=== PATIENT | male | born 1935 | race Caucasian/White ===

== ENCOUNTER 2016-11-24 16:14 | Inpatient (IN) | payer MEDICARE ==
[~2016-11-24] VITALS: Ht 175.3 cm; Wt 79.5 kg
--- NOTE | 2016-11-24 16:30 | NUR ---
PATIENT TO ROOM 2103, ALERT AND ORIENTED. FAMILY IS AT BEDSIDE. DR MALDONADO NOTIFIED OF PATIENT ARRIVAL AND IS AT BEDSIDE. 22 G IV SITED TO PATIENT R FA, 1 ATTEMPT. RESERVING PATIENT L ARM FOR NEW FISTULA PLACEMENT. PATIENT DENIES ANY NEEDS OR COMPLAINTS AT THIS TIME. WILL CONT TO MONITOR PATIENT. CPOC
[2016-11-24 16:37] VITALS: BP 138/75
[2016-11-24 16:50] VITALS: BMI 15.9
[2016-11-24] MEDS ORDERED: FLOMAX0.4 MG PO (17:22)
[2016-11-24] MEDS ORDERED: TIROSINT13 MCG PO (17:22)
[2016-11-24] MEDS ORDERED: REQUIP1 MG PO (17:23)
--- NOTE | 2016-11-24 17:30 | NUR ---
CALLED PHARMACY FOR TB SKIN TEST, WAITING FOR THEM TO BRING UP. CPOC
--- NOTE | 2016-11-24 17:30 | NUR ---
PATIENT SITTING UP ON SIDE ON BED EATING DINNER. FAMILY AT BEDSIDE. PATIENT DENIES ANY NEEDS. CPOC
--- NOTE | 2016-11-24 17:30 | NUR ---
SPOKE WITH ESTHER THE PHARMACIST AT [facility] IN [facility]. RECONCILED HOME MED LIST WITH THEIR LIST OF MEDICATION FOR PATIENT. DUE TO PATIENT NOT KNOWING WHAT HE TAKES OR THE DOSE. CPOC
[2016-11-24] MEDS ORDERED: TRAZODONE HCL50 MG PO (17:33)
[2016-11-24] MEDS ORDERED: HYDROCODONE-APA1 TAB PO (17:34)
[2016-11-24] MEDS ORDERED: MEGACE40 MG PO (17:35)
[2016-11-24] MEDS ORDERED: MULTIPLE VITAMI1 TA1 PO (17:35)
[2016-11-24] MEDS ORDERED: TIROSINT75 MCG PO (17:36)
--- NOTE | 2016-11-24 19:43 | NUR ---
WAS INFORMED DURING REPORT THAT PT WAS TO BE HELD NPO PAST MIDNIGHT FOR HEMOSPLIT PLACEMENT 11/25. NO ORDERS TO OBTAIN CONSENT ON CHART
[2016-11-24 20:56] VITALS: BP 135/63
--- NOTE | 2016-11-24 21:28 | NUR ---
RESTING IN BED ALERT ORIENTED CONVERSANT. DENIES NEEDS. NO ACUTE DISTRESS NOTED
[2016-11-25 00:36] VITALS: BP 159/67
--- NOTE | 2016-11-25 04:01 | NUR ---
PIPE AND TANK FABRICATOR AT BEDSIDE TO OBTAIN VITALS, CALL LIGHT IN REACH. WILL CONTINUE TO MONITOR.
[2016-11-25 04:57] VITALS: BP 124/45
[2016-11-25 06:25] LABS: BASOPHILS 0.4 % (0.0-2.0); EOSINOPHILS 2.1 % (0-7); HEMATOCRIT 27.8 % (42.0-54.0); HEMOGLOBIN 8.6 g/dL (13.5-17.5); IMMATURE GRANULOCYTES 0.2 % (0-5); LYMPHOCYTES 18.5 % (15-50); MCHC 30.9 g/dL (31.0-37.0); MCV 93.6 fL (80.0-100.0); MEAN PLATELET VOLUME 9.6 fL (7.4-10.4); MONOCYTES 9.1 % (2-11); NEUTROPHILS 69.7 % (40-80); PLATELET COUNT 264 10x3/uL (130-400); RBC 2.97 10x6/uL (4.20-6.10); RDW 15.3 % (11.5-14.5)
[2016-11-25 06:33] LABS: INR 1.15 (0.85-1.17); PROTIME 14.6 SECONDS (11.6-15.0)
[2016-11-25 06:44] LABS: ANION GAP 20.4 mmol/L (8-16); CALCIUM 8.2 mg/dL (8.5-10.1); CARBON DIOXIDE 17.7 mmol/L (21.0-32.0); POTASSIUM - SERUM 4.1 mmol/L (3.5-5.1)
--- NOTE | 2016-11-25 07:15 | NUR ---
RECIEVED REPORT ON PATIENT, PATIENT IS ALERT AND ORIENTED AT THIS TIME. PATIENT HAS A R FA IV THAT IS SL AT THIS TIME. PATIENT IS NPO THIS AM FOR SURGERY TODAY. HE IS GOING FOR HEMOSPLIT PLACEMENT AND FISTULA CREATION. PATIENT DENIES ANY NEEDS OR COMPLAINTS AT THIS TIME. WILL CONT TO MONITOR PATIENT. BED LOW AND LOCKED. CALL LIGHT IN REACH. CPOC
[2016-11-25 08:00] VITALS: BP 157/61
--- NOTE | 2016-11-25 09:00 | NUR ---
MORNING PO MEDS HELD DUE TO PATIENT BEING NPO FOR SURGERY. ASSESSMENT DONE. PATIENT DENIES ANY NEEDS OR COMPLAINTS. CPOC
[2016-11-25 11:12] VITALS: Ht 175.3 cm; Wt 79.5 kg
--- NOTE | 2016-11-25 11:37 | NUR ---
SURGERY CALLED FOR ME TO PREOP PATIENT, WAITING ON PREOP ORDERS. CPOC
--- NOTE | 2016-11-25 11:45 | NUR ---
PATIENT PATHWAYS - Notified of patient new to dialysis. Access it to be placed and patient's HD initiated later today. Per SUNSHINE Szymanski, v/o from [facility] to place this patient. Will confirm clinic of choice with patient/family then forward the records to the patient's clinic of choice. ELIZABETH PRL
[2016-11-25 11:54] VITALS: BP 138/63
--- NOTE | 2016-11-25 12:23 | NUR ---
PATIENT PREOP AND GONE FOR SURGERY
[2016-11-25 14:16] LABS: ALBUMIN 2.3 g/dL (3.4-5.0); ANION GAP 22.5 mmol/L (8-16); BILIRUBIN - TOTAL 0.37 mg/dL (0.2-1.3); CALCIUM 8.1 mg/dL (8.5-10.1); CARBON DIOXIDE 16.6 mmol/L (21.0-32.0); CREATININE - SERUM 8.1 mg/dL (0.6-1.3); POTASSIUM - SERUM 4.1 mmol/L (3.5-5.1); PROTEIN - SERUM 6.6 g/dL (6.4-8.2)
--- NOTE | 2016-11-25 14:20 | NUR ---
PATIENT IS BACK FROM SURGERY, PATIENT GOT A HEMOSPLIT TO R CHEST. PATIENT IS ALERT AND ORIENTED AT THIS TIME. PATIENT RR IS 24, O2 SAT IS 80%, BP 97/48 HR 101. NOTIFIED RESPIRATORY AND PUT PATIENT ON 2L/MIN VIA NC, O2 SAT IS NOW 96%. WILL CONT TO MONITOR PATIENT CLOSELY. CPOC
--- NOTE | 2016-11-25 14:45 | NUR ---
TB SKIN TEST DONE, INSERTED 0.1ML OF APLISOL IN THE R FA. LOT NUMBER [id number] EXP DATE 12/24. WILL NEED TO CHECK FOR RESULT ON 11/27/16 AT 1445. WILL PASS ON IN REPORT. CPOC
--- NOTE | 2016-11-25 14:54 | NUR ---
patient refuses to wear scds, explained and educated. still refuses
[2016-11-25 15:49] VITALS: BP 126/66
--- NOTE | 2016-11-25 15:57 | NUR ---
CM WAS NOTIFIED BY DR MALDONADO THAT PT WILL NEED OPHD ARRANGED. CM PLACED CALL TO CHARLA WOODARD WITH PATIENT PATHWAYS TO INFORM OF NEW OPHD ORDER. CHARLA WILL ARRANGE AND NOTIFY CM WHEN FINAL CHIAR TIME/CLINIC IS KNOWN.
--- NOTE | 2016-11-25 17:00 | NUR ---
PATIENT SITTING UP EATING DINNER. DENIES ANY NEEDS AT THIS TIME. WILL CONT TO MONITOR. CPOC
--- NOTE | 2016-11-25 18:10 | NUR ---
DIAYLSIS NURSE AT BEDSIDE TO START DIAYLSIS. CPOC
--- NOTE | 2016-11-25 21:02 | NUR ---
Mr. Roy had bedside hemodialysis today via his right chest hemosplit from 184 until 2046. Average blood flow was 250 mls/minute due to elevated BUN and this being his first treatment. Zero fluid removed per orders. Post vital signs were: B/P: 113/58, HR: 00, Temp: 97.8, Resps: 22.
[2016-11-25 22:37] VITALS: BP 114/58
[2016-11-26 01:38] VITALS: BP 132/69
--- NOTE | 2016-11-26 01:53 | NUR ---
PT RESTING SOUNDLY WITHOUT C/O OR DISTRESS NOTED. CALL LIGHT WITHIN REACH. WILL CONT TO MONITOR.
[2016-11-26 05:55] VITALS: BP 115/58
[2016-11-26 06:32] LABS: BASOPHILS 0.3 % (0.0-2.0); HEMATOCRIT 27.9 % (42.0-54.0); HEMOGLOBIN 8.8 g/dL (13.5-17.5); IMMATURE GRANULOCYTES 0.2 % (0-5); LYMPHOCYTES 11.5 % (15-50); MCH 29.2 pg (26.0-34.0); MCHC 31.5 g/dL (31.0-37.0); MCV 92.7 fL (80.0-100.0); MEAN PLATELET VOLUME 9.6 fL (7.4-10.4); MONOCYTES 8.3 % (2-11); NEUTROPHILS 78.7 % (40-80); PLATELET COUNT 230 10x3/uL (130-400); RBC 3.01 10x6/uL (4.20-6.10); RDW 15.1 % (11.5-14.5)
[2016-11-26 06:37] LABS: WBC 10.8 10x3/uL (4.8-10.8)
[2016-11-26 06:44] LABS: % SATURATION 16 % (15-55); IRON 17 ug/dl (35-150); TOTAL IRON BIND CAPACITY 101 ug/dl (260-445); UNSAT IRON BIND CAPACITY 84 ug/dl (150-375)
[2016-11-26 07:04] LABS: ALBUMIN 2.2 g/dL (3.4-5.0); BILIRUBIN - TOTAL 0.39 mg/dL (0.2-1.3); CALCIUM 8.1 mg/dL (8.5-10.1); MAGNESIUM - SERUM 1.7 mg/dL (1.8-2.4); PHOSPHOROUS 5.3 mg/dL (2.5-4.9); POTASSIUM - SERUM 3.6 mmol/L (3.5-5.1); PROTEIN - SERUM 6.4 g/dL (6.4-8.2); T4 THYROXIN - FREE 1.3 ng/dL (0.76-1.46); THYROID STIMULATING HORMONE 7.96 uIU/mL (0.36-3.74)
[2016-11-26 07:06] LABS: ANION GAP 18.1 mmol/L (8-16); CARBON DIOXIDE 22.5 mmol/L (21.0-32.0)
[2016-11-26 07:22] LABS: HEPATITIS C ANTIBODY <0.1 (0.0-0.9)
[2016-11-26 07:49] VITALS: BP 138/63
--- NOTE | 2016-11-26 08:01 | NUR ---
PT RESTING IN BED WITH EYES OPEN CALL LIGHT IN REACH NO PROBLEMS WILL MONITER
--- NOTE | 2016-11-26 09:13 | NUR ---
RESP UL ON 02 3L NC. CALL LIGHT IN REACH. WILL MONITOR NEEDS.
[2016-11-26 11:47] VITALS: BP 125/69
--- NOTE | 2016-11-26 12:00 | NUR ---
PT RESTING IN BED WITH EYES OPEN CALL LIGHT IN REACH NO PROBLEMS WILL MONITER
--- NOTE | 2016-11-26 14:45 | NUR ---
DIALYSIS IN ROOM TO DO DIALYSIS PT RESTING WITH CALL LIGHT IN REACH WILL MONITER
[2016-11-26 15:54] VITALS: BP 117/56
--- NOTE | 2016-11-26 20:09 | NUR ---
RESTING IN BED. DIFFICULTY SWALLOWING NOTED THAT WAS NOT PREVIOUSLY EVIDENT FROM PRIOR MEDICATION ADMINISTRATIONS. NO S/S ASPIRATION NOTED. ALERT ORIENTED CONVERSANT. DENIES NEEDS
[2016-11-26 20:37] VITALS: BP 138/74
--- NOTE | 2016-11-26 20:40 | NUR ---
PT REQUESTING UPDRAFT. RESPIRATORY NOTIFIED.
--- NOTE | 2016-11-26 23:11 | NUR ---
PT LAYING IN BED NO DISTRESS OBSERVED CALL LIGHT IN [facility] SRX2 BED LOW AND LOCKED WILL MONITOR
[2016-11-27 00:17] VITALS: BP 156/68
[2016-11-27 04:29] VITALS: BP 158/68
[2016-11-27 06:02] LABS: BASOPHILS 0.1 % (0.0-2.0); EOSINOPHILS 0.7 % (0-7); IMMATURE GRANULOCYTES 0.3 % (0-5); LYMPHOCYTES 5.5 % (15-50); MCV 93.5 fL (80.0-100.0); MEAN PLATELET VOLUME 9.5 fL (7.4-10.4); MONOCYTES 7.3 % (2-11); NEUTROPHILS 86.1 % (40-80); PLATELET COUNT 188 10x3/uL (130-400); RDW 15.3 % (11.5-14.5)
[2016-11-27 06:08] LABS: WBC 15.2 10x3/uL (4.8-10.8)
[2016-11-27 06:43] LABS: ANION GAP 18.7 mmol/L (8-16); CALCIUM 7.8 mg/dL (8.5-10.1); CARBON DIOXIDE 24.9 mmol/L (21.0-32.0); MAGNESIUM - SERUM 1.8 mg/dL (1.8-2.4); PHOSPHOROUS 5.4 mg/dL (2.5-4.9); POTASSIUM - SERUM 3.6 mmol/L (3.5-5.1)
--- NOTE | 2016-11-27 07:24 | NUR ---
RECIEVED REPORT ON PATIENT, PATIENT IS ALERT AND ORIENTED AT THIS TIME. IS AT BEDSIDE. PATIENT HAS A R CHEST HEMOSPLIT USED FOR DIAYLSIS. PATIENT ALSO HAS A R FA IV THAT IS SL AT THIS TIME. SHAREPOINT CONSULTANT AT BEDSIDE DOING VS PATIENT O2 SAT IS 83% ON 2L/MIN VIA NC, ENCOURGED PATIENT TO SIT UP IN BED AND COUGH, O2 SAT NOW 87%,REPIRATORY AT BEDSIDE FOR BREATHING TREATMENT. WILL CONT TO MONITOR PATIENT. CPOC.
[2016-11-27 07:45] VITALS: BP 159/78
--- NOTE | 2016-11-27 09:15 | NUR ---
MORNING MEDICATION CRUSHED AND GIVEN IN APPLESAUCE. PATIENT TOLERATED WELL. ASSESSMENT DONE. APTIENT DENIES ANY NEEDS. CPOC
--- NOTE | 2016-11-27 11:00 | NUR ---
PATIENT HAS A DRY, NON PRODUCTIVE FREQUENT COUGH. AND PATIENT HAS SHALLOW BREATHING, NOTIFIED WENDY HADLEY AND SHE IS CONSULTING DR ALLYSSA DIAMOND PATIENT. PATIENT O2SAT 95%. WILL CONT TO MONITOR PATIENT. CPOC
[2016-11-27 11:57] VITALS: BP 113/46
--- NOTE | 2016-11-27 12:00 | NUR ---
PATIENT IV LEAKING, IV DC WITH CATH TIP INTACT. WILL RESITE. CPOC
--- NOTE | 2016-11-27 12:30 | NUR ---
PATIENT IV RESITED TO R FA, 22G. CPOC
--- NOTE | 2016-11-27 13:54 | NUR ---
PATIENT PUT BACK TO BED, PATIENT SIT IN CHAIR FOR 30 MINS, THEN WANTED BACK IN BED. CPOC
--- NOTE | 2016-11-27 14:45 | NUR ---
PATIENT TB SKIN TEST WNL, NO INDURATION OR REDNESS NOTED. CPOC
[2016-11-27 15:03] VITALS: BP 138/62
--- NOTE | 2016-11-27 15:16 | NUR ---
REHAB PRESCREENING Rehab referral received and chart reviewed. Mr. Roy does have a rehab diagnosis. He sat at bedside with PT this morning and did walk 4 feet in the afternoon to chair. Rehab will follow this patient for improved mobility to ensure he can tolerate 3 hours of therapy. Thank you for this referral! Nessa Denny, HEARING AID CONSULTANT/[facility]
--- NOTE | 2016-11-27 16:00 | NUR ---
PATIENT USING INCENTIVE SPIROMETER. CPOC
[2016-11-27 17:06] LABS: APPEARANCE TURBID (CLEAR); BACTERIA MODERATE /hpf (NONE SEEN); BILIRUBIN NEGATIVE (NEGATIVE); COLOR YELLOW (YELLOW); EPITHELIAL CELLS 0-5 /hpf (0-5); GLUCOSE NEGATIVE (NEGATIVE); KETONE NEGATIVE (NEGATIVE); LEUKOCYTE ESTERASE 2+ (NEGATIVE); NITRITE NEGATIVE (NEGATIVE); PROTEIN 2+ mg/dL (NEGATIVE); SPECIFIC GRAVITY 1.015 (1.005-1.020); UROBILINOGEN NORMAL (NORMAL); WHITE CELLS - URINE >50 /hpf (0-5)
--- NOTE | 2016-11-27 18:15 | NUR ---
PATIENT SITTING UP IN BED, DENIES ANY NEEDS. USING INCENTIVE SPIROMETER. MEETING 750 GOAL. WILL MONITOR. CPOC
--- NOTE | 2016-11-27 19:30 | NUR ---
ASSESSMENT COMPLETE, DENIES NEEDS AT THIS TIME.RESP EVEN AND UNLAB WITH NO S/S OF ACUTE DISTRESS NOTED. RT CHEST HEMESPLIT INTACT LOCKED. RT FA SL INTACT WITH NO R/S NOTED AT THIS TIME. HOB UP SR UP X2, C/L IN REACH CONTINUE TO MONITOR.
[2016-11-27 20:00] VITALS: BP 125/52
[2016-11-28] VITALS: BP 107/69
--- NOTE | 2016-11-28 01:47 | NUR ---
EYES CLOSED, RESP UNLAB WITH NO S/S OF ACUTE DISTRESS NOTED. C/L IN REACH.
[2016-11-28 04:00] VITALS: BP 117/58
[2016-11-28 05:41] LABS: BASOPHILS 0.1 % (0.0-2.0); EOSINOPHILS 0.8 % (0-7); HEMATOCRIT 28.6 % (42.0-54.0); HEMOGLOBIN 8.9 g/dL (13.5-17.5); IMMATURE GRANULOCYTES 0.3 % (0-5); LYMPHOCYTES 7.1 % (15-50); MCHC 31.1 g/dL (31.0-37.0); MCV 93.2 fL (80.0-100.0); MEAN PLATELET VOLUME 9.7 fL (7.4-10.4); MONOCYTES 8.6 % (2-11); NEUTROPHILS 83.1 % (40-80); RBC 3.07 10x6/uL (4.20-6.10); RDW 15.3 % (11.5-14.5)
[2016-11-28 06:10] LABS: PLATELET COUNT 242 10x3/uL (130-400)
[2016-11-28 06:26] LABS: ANION GAP 15.3 mmol/L (8-16); CALCIUM 7.4 mg/dL (8.5-10.1); CARBON DIOXIDE 25.9 mmol/L (21.0-32.0); CREATININE - SERUM 5.8 mg/dL (0.6-1.3); MAGNESIUM - SERUM 1.6 mg/dL (1.8-2.4); PHOSPHOROUS 5.3 mg/dL (2.5-4.9); POTASSIUM - SERUM 3.2 mmol/L (3.5-5.1); PRE-ALBUMIN 11.8 mg/dL (18.0-35.7)
--- NOTE | 2016-11-28 07:22 | NUR ---
AM ROUNDING- PT LAYING IN BED ON BACK WITH EYES CLOSED RESTING. ON 02 AT 2L VIA NC. IV SEEN TO RIGHT FOREARM THAT CURRENTLY HAS ANTIBIOTICS GOING. RIGHT CHEST HEMOSPLIT SEEN FOR DIALYSIS ACCESS. PT IS SUPPOSE TO DIALYZE TODAY PER REPORT FROM GRADES 7 AND 8 TEACHER NURSE, JUVENCIO. PT IS ON LOVENOX INJECTION FOR DVT PREVENTION. UP WITH ASSIST PER REPORT. NO NEED AT CURRENT TIME. WILL CONTINUE TO MONITOR.
--- NOTE | 2016-11-28 07:33 | NUR ---
PAGEErin WOODRUFF APN TO INFORM HER THAT PTS POTASSIUM IS 3.2. AWAITING CALLBACK.
--- NOTE | 2016-11-28 07:38 | NUR ---
RECEIVED CALLBACK FROM TORRIE WOODRUFF. RECEIVED NEW ORDERS. WILL CONTINUE TO MONITOR.
[2016-11-28 08:00] VITALS: BP 91/53
--- NOTE | 2016-11-28 09:23 | NUR ---
0900- PT TO CT VIA BED.
--- NOTE | 2016-11-28 09:23 | NUR ---
0915- PT BACK FROM CT VIA BED.
--- NOTE | 2016-11-28 11:03 | NUR ---
Nutrition follow-up: Diet: Regular low PO4 Pt also receiving Nepro with meals PO intake 25-50% of meals Labs reviewed +BM Wt: 108# Labs reviewed PO intake remains poor at this time Receiving a regular low PO4 diet; Nepro with meals. Will offer Butter Pecan Nepro along with Vanilla Nepro. RDN will continue to encourage increased po intake. Swallow eval has been ordered per Renal physician. RDN following.
--- NOTE | 2016-11-28 11:29 | NUR ---
Rehab Note- Patient continues with test during acute hospital stay- CT of chest & also doppler studies. Will continue to follow the patient at this time. Thank you for this referral! Salud Barba RN Clinical Liaison, Rehab Care/[place]
--- NOTE | 2016-11-28 11:47 | NUR ---
Patient Name: LUL YOON Admission Status: Urgent Accout number: [id number] Admission Date: 11-24-2016 : 1935 Admission Diagnosis:ADULT FAILURE TO THRIVE Attending: ZARINA Current LOS: 4 Anticipated DC Date: Planned Disposition: Inpatient Rehab Primary Insurance: MEDICARE A & B PLANNED EXTERNAL PROVIDER: [facility] IN[facility]IENT RE[facility] Discharge Planning Comments: * Is the patient Alert and Oriented? Yes 0 * How many steps to enter\exit or inside your home? 3 0 * PCP DR. ELLA COOPER 0 * Pharmacy [facility] 0 * Preadmission Environment Home with Family 0 * ADLs Independent 0 * Equipment Nebulizer Walker 0 * Other Equipment [facility] - MEDICAL EQUIPMENT PROVIDER 0 * List name and contact numbers for known caregivers / representatives who currently or will assist patient after discharge: KELLI YOON, SPOUSE, RIVERA CHANTELLE, DTR, 0 * Community resources currently utilized Other 0 * Please name any agencies selected above. OUTPATIENT HEMODIALYSIS UNIT BEING ARRANGED * Additional services required to return to the preadmission environment? Yes * Can the patient safely return to the preadmission environment? Yes 0 * Has this patient been hospitalized within the prior 30 days at any hospital? No 0 CM RECEIVED ORDER FOR INPATIENT REHAB. CM MET WITH PT AND GRANDDAUGHTER IN ROOM TO DISCUSS DISCHARGE PLANNING AND NEEDS. PT REPORTS LIVING AT HOME INDEPENDENTLY WITH SPOUSE AND ADULT DAUGHTER. PT HAS NEBULIZER AND WALKER FROM [facility]. PT HAS NO OUTSIDE SERVICES ASSISTING IN THE HOME. CM DISCUSSED AVAILABILITY OF HOME HEALTH, REHAB SERVICES AND MEDICAL EQUIPMENT. PT WOULD PREFER TO GO HOME IF HE IS ABLE; PT IS UNSURE AND HAS NOT BEEN OUT OF BED SINCE ADMISSION. PT WILL CONSIDER INPATIENT REHAB, DETENTION OR HOME HEALTH, DEPENDING UPON WHAT HE IS ABLE TO DO WITH THERAPY THIS AFTERNOON. PT REPORTS FAMILY WILL PICK HIM UP FOR DISCHARGE HOME. IMPORTANT MESSAGE FROM MEDICARE PROVIDED AND EXPLAINED. CM WAITING ON PHYSICAL THERAPY EVALUATION AND WILL SPEAK TO PT AGAIN REGARDING REHAB / HOME NEEDS. Hand Developer: Wilmer Flores
[2016-11-28 12:00] VITALS: BP 109/56
--- NOTE | 2016-11-28 12:32 | NUR ---
DIALYSIS IS IN ROOM WITH PT. NO NEED AT CURRENT TIME. WILL CONTINUE TO MONITOR.
--- NOTE | 2016-11-28 15:01 | NUR ---
FLOOR WAS INFORMED AT [facility] WILL BE RESCHEDULED FOR 11/29/16 DUE TO THE FACT PT IS GETTING DIALYSIS AND SPEECH PATHOLOGIST WILL BE HERE T[place]MOR[place]ATIANA [place]
--- NOTE | 2016-11-28 15:34 | NUR ---
JOSSY FROM RADIOLOGY CALLED AND STATED THAT PTS SWALLOW STUDY WOULD HAVE TO BE DONE IN THE MORNING BECAUSE THE SPEECH PATHOLOGIST WAS NOT IN TODAY.
[2016-11-28 16:00] VITALS: BP 102/50
--- NOTE | 2016-11-28 18:19 | NUR ---
PT SITTING UP IN BED. AT BEDSIDE. NO NEED AT CURRENT TIME. WILL CONTINUE TO MONITOR.
--- NOTE | 2016-11-28 19:30 | NUR ---
ASSESSMENT COMPLETE, DENIES NEEDS AT THIS TIME. HOB UP SR UP X2, C/L IN REACH. O2 @ 2; NC IN PLACE. ENCOURAGED TO COUGH AND DEEP BREATHE. COUGHS SHALLOW ONLY. RT CHEST HEMESPLIT INTACT AND LOCKED. RT FA SL INTACT WITH NO R/S NOTEDS AT SITE. AT BEDSIDE FOR NIGHT. CONTINUE TO MONITOR.
[2016-11-28 20:00] VITALS: BP 122/58
[2016-11-29] VITALS: BP 126/58
[2016-11-29 04:00] VITALS: BP 113/59
[2016-11-29 05:11] LABS: BASOPHILS 0.1 % (0.0-2.0); EOSINOPHILS 0 % (0-7); HEMATOCRIT 25.6 % (42.0-54.0); IMMATURE GRANULOCYTES 0.3 % (0-5); LYMPHOCYTES 2.3 % (15-50); MCH 29.3 pg (26.0-34.0); MCHC 31.3 g/dL (31.0-37.0); MCV 93.8 fL (80.0-100.0); NEUTROPHILS 95.3 % (40-80); PLATELET COUNT 175 10x3/uL (130-400); RBC 2.73 10x6/uL (4.20-6.10); RDW 15.2 % (11.5-14.5); WBC 13.3 10x3/uL (4.8-10.8)
[2016-11-29 05:25] LABS: ANION GAP 10.9 mmol/L (8-16); CALCIUM 8.1 mg/dL (8.5-10.1); CARBON DIOXIDE 31.2 mmol/L (21.0-32.0)
[2016-11-29 05:26] LABS: CREATININE - SERUM 3.6 mg/dL (0.6-1.3); POTASSIUM - SERUM 4.1 mmol/L (3.5-5.1)
--- NOTE | 2016-11-29 07:33 | NUR ---
AM ROUNDING- PT LAYING ON RIGHT SIDE RESTING WITH EYES OPEN. IS AT BEDSIDE. PT IS SUPPOSE TO HAVE A SWALLOW STUDY TODAY DONE. IV SEEN TO RIGHT FOREARM THAT IS SALINE LOCKED AND PATENT. ON O2 AT 2L VIA NC. URINAL AT BEDSIDE. NO MONITOR. RESERVE LEFT ARM FOR NEW AVF THAT IS NOT ACCESSABLE YET PER REPORT FROM GROUNDSKEEPER PORTER NURSE. RIGHT CHEST HEMOSPLIT SEEN FOR DIALYSIS ACCESS. PT HAD DIALYSIS YESTERDAY. ON LOVENOX FOR DVT PREVENTION. NO NEED AT CURRENT TIME. WILL CONTINUE TO MONITOR.
[2016-11-29 08:22] LABS: VITAMIN D 25 HYDROXY 23.5 ng/mL (30.0-100.0)
[2016-11-29 08:52] VITALS: BP 116/63
[2016-11-29 12:13] VITALS: BP 101/52
--- NOTE | 2016-11-29 12:51 | NUR ---
Patient Name: LUL YOON Encounter No: [id number] : 1935 Primary Insurance: MEDICARE A & B Anticipated DC Date: 11-30-2016 Planned Disposition: [facility] Facility External Planned Provider: [facility], MEDICARE REHAB BED DCP follow-up note: CM SPOKE TO PT AND SPOUSE IN ROOM REGARDING DISCHARGE PLANNING AND NEEDS. PT AND SPOUSE HAVE DISCUSSED INPATIENT REHAB AND HAVE DECIDED TO GO TO [facility] [place] THAT WILL BE MUCH CLOSER TO HOME FOR BOTH OF THEM. CHOICE SIGNED. CM NOTIFIED RANJAN OF [facility] THAT PT WAS NOT INTERESTED IN INPATIENT REHAB AT [facility]. CM SPOKE TO RN SUNSHINE SAWYER WHO ADVISED PT'S OUTPATIENT DIALYSIS CLINIC SCHEDULE IS: [facility] IN [place], //, 3:15PM; FIRST HD APPT TO ARRIVE AT 2:30PM. CM CALLED [facility], , LEFT MESSAGE FROM LANDON AND FAXED REFERRAL TO [facility] AT [phone]. CM WAITING ADMISSION DETERMINATION FROM [facility]. Wilmer Flores, CASE MANAGEMENT
--- NOTE | 2016-11-29 14:16 | NUR ---
PTS IV CATHETER TO RIGHT FOREARM KEPT LEAKING WHEN GIVING IV MEDICAITON. DONTAE BROWN, VASCULAR ACCESS NURSE RESITED PT TO RIGHT HAND X 1 STICK WITH 22G IV CATHETER. TOLERATED WELL. WILL CONTINUE TO SY.
--- NOTE | 2016-11-29 14:20 | NUR ---
OLD IV TO RIGHT FOREARM REMOVED WITH CATH TIP INTACT. SECURED SITE WITH 4X4 GAUZE AND TAPE. TOLERATED WELL.
[2016-11-29 16:08] VITALS: BP 142/63
--- NOTE | 2016-11-29 16:59 | NUR ---
PATIENT PATHWAYS - Patient was approved for placement at [facility] on a Monday/Monday/Monday @ 3:15pm. Patient will need to arrive at 2:30 for first treatment. Welcome Letter forwarded to CM to give to patient. Awaiting further orders. ELIZABETH PRL
--- NOTE | 2016-11-29 18:33 | NUR ---
PT LAYING IN BED ON BACK RESTING. AT BEDSIDE. PT IS NPO PER ORDER. WILL CONTINUE TO MONITOR.
--- NOTE | 2016-11-29 19:30 | NUR ---
EYES CLOSED, RESP UNLAB WITH O2 @ 2L NC IN USE, WITH SHALLOW BREATHING NOTED. LYING ON LEFT SIDE, EASILY AROUSED, VOICES NO C/O PAIN OR DISCOMFORT. C/L IN REACH.
[2016-11-29 21:18] VITALS: BP 95/51
[2016-11-30 01:12] VITALS: BP 106/57
--- NOTE | 2016-11-30 03:10 | NUR ---
AWAKE, ALERT, VOICES NO C/O PAIN OR DISCOMFORT AT THIS TIME. HOB UP SR UP X2, C/L IN REACH. AT BEDSIDE FOR NIGHT. CONTINUE TO MONITOR,
[2016-11-30 04:55] LABS: BASOPHILS 0 % (0.0-2.0); EOSINOPHILS 0 % (0-7); HEMATOCRIT 24.7 % (42.0-54.0); HEMOGLOBIN 7.6 g/dL (13.5-17.5); IMMATURE GRANULOCYTES 0.3 % (0-5); LYMPHOCYTES 3.4 % (15-50); MCH 29.2 pg (26.0-34.0); MCHC 30.8 g/dL (31.0-37.0); MEAN PLATELET VOLUME 9.7 fL (7.4-10.4); MONOCYTES 3.9 % (2-11); NEUTROPHILS 92.4 % (40-80); PLATELET COUNT 199 10x3/uL (130-400); RDW 15.7 % (11.5-14.5); WBC 12.3 10x3/uL (4.8-10.8)
[2016-11-30 05:14] LABS: ANION GAP 12.6 mmol/L (8-16); CALCIUM 8.7 mg/dL (8.5-10.1); CARBON DIOXIDE 29.3 mmol/L (21.0-32.0); POTASSIUM - SERUM 3.9 mmol/L (3.5-5.1)
[2016-11-30 05:21] VITALS: BP 122/58
--- NOTE | 2016-11-30 08:01 | NUR ---
ASSESSMENT DONE. PT A/O, WATCHING TV. SPOUSE IN ROOM. PT NPO. DENIES NEEDS. NO DISTRESS NOTED. CALL LIGHT WITH IN REACH. WILL CONT. TO MONITOR.
[2016-11-30 08:22] LABS: IMMUNOGLOBULIN A 161 mg/dL (61-437); IMMUNOGLOBULIN G 1371 mg/dL (700-1600); IMMUNOGLOBULIN M 62 mg/dL (15-143)
--- NOTE | 2016-11-30 08:37 | NUR ---
Patient Name: LUL YOON Encounter No: [id number] : 1935 Primary Insurance: MEDICARE A & B Anticipated DC Date: 11-30-2016 Planned Disposition: Intermediate Facility External Planned Provider: [facility], MEDICARE REHAB BED DCP follow-up note: CM FAXED REFERRAL UPDATE TO [facility] AT [phone]. CM WAITING ADMISSION DETERMINATION FROM [facility]. Wilmer Flores, CASE MANAGEMENT
[2016-11-30 08:50] VITALS: BP 118/74
--- NOTE | 2016-11-30 09:31 | NUR ---
RESP UL ON . AT BS. CALL LIGHT IN REACH. WILL CONT. PLAN OF CARE.
--- NOTE | 2016-11-30 09:44 | NUR ---
PT TO DIALYSIS VIA BED. SPOUSE IN ROOM
--- NOTE | 2016-11-30 13:40 | NUR ---
PT BACK FROM DIALYSIS
--- NOTE | 2016-11-30 14:16 | EC ---
PATIENT:LUL YOON DATE OF SERVICE: 11/24/16 SEX: M MEDICAL RECORD: [id number] DATE OF : [birth year] LOCATION:D.M2 D.210 AGE OF PATIENT: 81 ADMISSION DATE: 11/24/16 REFERRING PHYSICIAN: INTERPRETING PHYSICIAN: GEOVANI FERRER MD ECHOCARDIOGRAM REPORT ECHO CHARGES 4 ECHO COMPLETE CLINICAL DIAGNOSIS: ASSESS LV FUN/SOB ECHOCARDIOGRAPHIC MEASUREMENTS (adult normal given) AC root (d.<3.7cm) 3.8 LV Septum d (<1.2 cm> 2.0 Valve Excursion 2.1 LV Septum (systole) 2.1 Left Atria (s.<4.0cm> 3.8 LVPW d(<1.2cm) 1.5 RV (d.<2.3cm) 3.8 LVPW (sytole) 1.9 LV diastole(<5.6CM) 3.9 MV E-F(>70mm/sec) LV systole 2.2 LVOT Diameter 2.1 MV exc.(>10mm) 2.0 Est.ejection fraction (50-75%) Pericardial Effusion N DOPPLER: LVIT A 118 E 78.0 LA RVSP 51 LVOT 117 AOP1/2T Asc. Ao 121 RVOT 128 RA PA 152 AV Gradient Peak 5.90 AV Mean 3.12 AV Area 3.0 MV Gradient Peak 4.74 MV Mean 1.92 MV Area COMMENTS: Prosthetics Technician: Roxana CORNELIUS Process Equipment Operator:1 Dr. Archer TAPE# PACS DATE OF SERVICE: 11/25/2016 Adequate 2D echo, color flow and spectral Doppler, and M-mode. LVH is present. LV internal dimensions are normal. Wall motion is normal. EF is greater than or equal to 55%. Aortic valve is tricuspid. No evidence of stenosis by Doppler interrogation. The left atrium is normal at 3.8 cm. Mitral valve shows mild mitral annular calcification only and mild MR. Right-sided chambers appear grossly normal. There is moderate TR. PA systolic pressure is estimated greater than or equal to 51 mmHg via the continuity equation. ECHOCARDIOGRAM REPORT [id number] LUL YOON TRANSINT:[id number] Voice Confirmation ID: [id number] DOCUMENT ID: [id number] 11/30/2016 Edited to correct date of service, dmm. GEOVANI FERRER MD at 1416 CC: [id number] DICTATION DATE: 11/27/16 1056 WEB PRODUCTION MANAGER: 11/27/162021 ADM IN [place] [id number] [place] [address]
[2016-11-30 14:52] VITALS: BP 116/54
--- NOTE | 2016-11-30 16:48 | NUR ---
PT IS WANTING TO EAT APPLESAUCE. STATES HE IS "STARVING." THIS NURSE ADVISED PT AND SPOUSE AGAINST EATTING OR DRINKING ANYTHING AT THIS TIME. EDUCATED PT AND SPOUSE ON RISKS THAT MOST LIKLY WILL ARISE IF PT WERE TO EAT. PT STATES HE UNDERSTAND THE RISKS BUT HE IS HUNGERY AND WANTS JUST A SMALL CONTAINER OF APPLESAUCE. NURSE SPOKE TO DR. TEJEDA ABOUT THIS. DR. TEJEDA STATES TO TELL THE PT NO, AND TO START D5 1/2 NS, BUT TO NOTIFY RENAL BEFORE STARTING TO LET THEM KNOW. PAGED TIMOTHY OIL FIELD PUMPER WITH RENAL. WAITING TO HEAR BACK FROM RENAL NOW.
--- NOTE | 2016-11-30 17:52 | NUR ---
DR. ANDREWS HERE AND DISCUSSED PEG PLACEMENT WITH PT AND FAMILY. TPN ORDERED. PT TEARFUL, BUT IS HOPEFUL THAT PROCEDURE WILL HELP HIM TO FEEL BETTER. DENIES NEEDS AT THIS TIME. PT COUGH IS WEAK HE IS UNABLE TO COUGH ANYTHING UP.
[2016-11-30 18:42] LABS: ALBUMIN 2.3 g/dL (3.4-5.0); ANION GAP 14.4 mmol/L (8-16); CALCIUM 8.4 mg/dL (8.5-10.1); CARBON DIOXIDE 28.3 mmol/L (21.0-32.0); MAGNESIUM - SERUM 1.8 mg/dL (1.8-2.4); POTASSIUM - SERUM 3.7 mmol/L (3.5-5.1)
[2016-11-30 18:44] LABS: CREATININE - SERUM 2.3 mg/dL (0.6-1.3); PRE-ALBUMIN 14.8 mg/dL (18.0-35.7)
[2016-11-30 20:00] VITALS: BP 127/60
--- NOTE | 2016-11-30 23:13 | NUR ---
Recieved report, patient alert and oriented , family at bedside, call light , within reach, patient is NPO, IV sites right wrist and right hemisplit, O2 at 2 L via NC, left arm reserve, assessment done, will continue to monitor.
[2016-12-01] VITALS: BP 135/66
--- NOTE | 2016-12-01 01:10 | NUR ---
Patient resting quietly in bed eyes closed, family at bedside sleeping, call light, hydration, and bedside table within reach, will continue to monitor.
--- NOTE | 2016-12-01 04:51 | NUR ---
Patient resting in bed, family requested breathing treatment from respiratory, respiratory came and gave him his treatment, will continue to monitor.
[2016-12-01 06:03] LABS: BASOPHILS 0 % (0.0-2.0); EOSINOPHILS 0 % (0-7); HEMATOCRIT 27.2 % (42.0-54.0); HEMOGLOBIN 8.2 g/dL (13.5-17.5); IMMATURE GRANULOCYTES 0.4 % (0-5); LYMPHOCYTES 5.4 % (15-50); MCH 29.4 pg (26.0-34.0); MCHC 30.1 g/dL (31.0-37.0); NEUTROPHILS 88.2 % (40-80); PLATELET COUNT 209 10x3/uL (130-400); RBC 2.79 10x6/uL (4.20-6.10)
[2016-12-01 06:13] LABS: MCV 97.5 fL (80.0-100.0)
[2016-12-01 06:45] LABS: CALCIUM 8.8 mg/dL (8.5-10.1); CARBON DIOXIDE 27.8 mmol/L (21.0-32.0)
[2016-12-01 06:46] LABS: CREATININE - SERUM 2.9 mg/dL (0.6-1.3); POTASSIUM - SERUM 4.8 mmol/L (3.5-5.1)
--- NOTE | 2016-12-01 08:06 | NUR ---
ASSESSMENT DONE. AWAKE, A/O. C/O PAIN 02/13, GENERALIZED. PAGED TIMOTHY PACKAGING MATERIALS INSPECTOR WITH RENAL. REC'D ORDER, FOR BUPERNEX 0.1MG Q4H PRN. PT DID NOT SLEEP WELL LAST NIGHT. DENIES OTHER NEEDS AT THIS TIME. CALL LIGHT WITH INREACH. WILL CONT TO MONITOR.
[2016-12-01 08:34] VITALS: BP 99/66
[2016-12-01 09:19] LABS: ANA REFLEX - DIRECT Negative (Negative)
--- NOTE | 2016-12-01 09:48 | NUR ---
Patient Name: LUL YOON Encounter No: [id number] : 1935 Primary Insurance: MEDICARE A & B Anticipated DC Date: 11-30-2016 Planned Disposition: Jail Facility External Planned Provider: [facility], MEDICARE REHAB BED DCP follow-up note: CM RECEIVED CALL FROM LANDON OF [facility] AT [phone], THEY WILL NOT ACCEPT PT THEY HAVE NO BEDS AND NO ANTICIPATED BEDS TO BE AVAILABLE THIS WEEK OR EARLY NEXT WEEK. CM SPOKE TO PT'S SPOUSE IN ROOM, SHE REQUESTED REFERRAL BE SENT TO [facility] IN [place]. CM CALLED [facility], , SPOKE TO LANDON WHO REPORTED BED AVAILABLE AND WILL SCREEN FOR ADMISSION. CM FAXED REFERRAL TO [phone]. CM WAITING ADMISSION DETERMINATION FROM [facility]. Wilmer Flores, CASE MANAGEMENT
--- NOTE | 2016-12-01 09:59 | NUR ---
UP IN CHAIR. IV PATENT. AT BS. WILL CONT. P[NOEL OF CARE.
--- NOTE | 2016-12-01 10:09 | NUR ---
PT SITTING UP IN CHAIR AT BEDSIDE. A/O. WATCHING TV. DENIES PAIN. STATES HE FEELS MUCH BETTER SITTING UP. STATES HIS BREATHING AND COUGHING IS BETTER WHILE HE IS SITTING UP WELL. CALL LIGHT WITH IN REACH. SPOUSE IN ROOM. WILL CONT. TO MONITOR.
[2016-12-01 11:00] VITALS: BP 138/70
--- NOTE | 2016-12-01 12:38 | NUR ---
PT LAYING ON HIS SIDE IN BED, WATCHING TV. A/O. SPOUSE AT BEDSIDE. STATES HE IS STARTING TO FEEL BETTER. DENIES NEEDS AT THIS TIME. CALL LIGHT WITH IN REACH. WILL CONT. TO MONITOR.
--- NOTE | 2016-12-01 13:15 | NUR ---
CONSENTS SIGNED FOR EGD AND PEG PLACEMENT FOR TOMORROW.
--- NOTE | 2016-12-01 13:38 | NUR ---
PT WAS ABLE TO STAND UP AND WEIGH ON A STANDING SCALE. PT WEIGHED 100.6 LBS. PT THEN REQUESTED TO SIT UP IN CHAIR AT BEDSIDE.
--- NOTE | 2016-12-01 14:00 | NUR ---
DRESSINGS APPLIED TO PT'S BILATERAL LOWER EXTREMITIES. BOTH LE WITH SEVERAL BLEEDING SORES. PT HAS JUST GOTTEN OUT OF SHOWER. NURSE CLEANED AREAS WITH WOULD CLEANSER, APPLED ABD PAD, WRAPPED WITH KERLEX, AND SECURED WITH TAPE.
[2016-12-01 16:39] VITALS: BP 148/71
--- NOTE | 2016-12-01 17:33 | NUR ---
PT REQUESTED "SOMETHING TO HELP HIM SLEEP TONIGHT." SPOKE TO TIMOTHY SOLIS WITH RENAL. ORDER RECEIVED FOR ATIVAN 0.5MG QHS PRN. IF THAT IS NOT ENOUGH STAFF MAY CALL FOR ANOTHER ORDER.
--- NOTE | 2016-12-01 17:41 | NUR ---
PT SITTING UP IN BED PLAYING A GAME ON HIS TABLET. A/O. DENIES NEEDS AT THIS TIME. PT COUGHING. HE HAS NOT BEEN ABLE TO COUGH ANYTHING UP TODAY. CALL LIGHT WITH IN REACH. WILL CONT. TO MONITOR.
--- NOTE | 2016-12-01 19:40 | NUR ---
RESUMED CARE OF PT, COMPLAINS OF PAIN, WILL GIVE, BUPRENEX, 02-2L, IV-R WRIST-PROCALAMINE @50, RESERVED L ARM, R.CHEST HEMOSPLIT,EGD AND PEG PLAN FOR TOMORROW CONSENT ARE SIGNED PER DAYSHIFT, AT BEDSIDE, CALL LIGHT IN REACH, WILL CONTINUE TO MONITOR
[2016-12-01 20:00] VITALS: BP 146/73
[2016-12-02] VITALS: BP 140/77
--- NOTE | 2016-12-02 03:20 | NUR ---
FOAM DISPENSER AT BEDSIDE TO OBTAIN VITALS, CALL LIGHT IN REACH. WILL CONTINUE WITH PLAN OF CARE.
[2016-12-02 04:00] VITALS: BP 152/75
--- NOTE | 2016-12-02 04:53 | NUR ---
PT HAS SLEPT MOST OF NIGHT , AT BEDSIDE, CALL LIGHT IN REACH
[2016-12-02 06:11] LABS: BASOPHILS 0.1 % (0.0-2.0); EOSINOPHILS 0 % (0-7); HEMATOCRIT 28.5 % (42.0-54.0); HEMOGLOBIN 8.7 g/dL (13.5-17.5); IMMATURE GRANULOCYTES 0.6 % (0-5); LYMPHOCYTES 3.5 % (15-50); MCH 29.9 pg (26.0-34.0); MCHC 30.5 g/dL (31.0-37.0); MCV 97.9 fL (80.0-100.0); MEAN PLATELET VOLUME 9.9 fL (7.4-10.4); MONOCYTES 4.4 % (2-11); NEUTROPHILS 91.4 % (40-80); PLATELET COUNT 194 10x3/uL (130-400); RBC 2.91 10x6/uL (4.20-6.10); RDW 16.1 % (11.5-14.5)
[2016-12-02 06:19] LABS: WBC 13.9 10x3/uL (4.8-10.8)
[2016-12-02 06:28] LABS: ANION GAP 12.4 mmol/L (8-16); CALCIUM 8.1 mg/dL (8.5-10.1); CARBON DIOXIDE 26.8 mmol/L (21.0-32.0); CREATININE - SERUM 3.8 mg/dL (0.6-1.3); POTASSIUM - SERUM 4.2 mmol/L (3.5-5.1)
--- NOTE | 2016-12-02 07:37 | NUR ---
ASSESSMENT DONE. PT LAYING IN BED WATCHING TV. A/O. STATES HE FEELS BETTER THIS MORNING BECAUSE HE WAS ABLE TO REST LAST NIGHT. REQUEST PAIN MED D/T GENERALIZED PAIN 03/15. PT IS GOING FOR PEG PLACEMENT TODAY AROUND 12OO. CALL LIGHT WITH INREACH. WILL CONT. TO MONITOR.
[2016-12-02 08:31] VITALS: BP 142/80
--- NOTE | 2016-12-02 08:50 | NUR ---
Patient Name: LUL YOON Encounter No: [id number] : 1935 Primary Insurance: MEDICARE A & B Anticipated DC Date: 12-06-2016 Planned Disposition: Retirement Facility External Planned Provider: [facility], MEDICARE REHAB BED DCP follow-up note: CM RECEIVED CALL FROM LNADON OF [facility], ,WHO REPORTED FACILITY PLANS TO ACCEPT PT FOR ADMISSION AT HOSPITAL DISCHARGE. [facility] WOULD LIKE TO RECEIVE PT ON A NON DIALYSIS DAY. [facility] WILL NEED CLINICAL UPDATE FAXED ON 12-05-16. FOR DISCHARGE, NURSE REPORT TO BE CALLED TO [phone]. FAX DISCHARGE INFORMATION TO [phone]. [facility] TO ARRANGE VAN TRANSPORT IF PT IS ABLE TO SIT SAFELY FOR DURATION OF TRANSPORT. Wilmer Flores, CASE MANAGEMENT
--- NOTE | 2016-12-02 09:10 | NUR ---
PT SITTING UP IN CHAIR. STATES HE FEELS GOOD. DENIES NEEDS AT THIS TIME. CALL LIGHT WITH INREACH. WILL CONT. TO MONITOR.
--- NOTE | 2016-12-02 09:40 | NUR ---
PT TO GI LAB VIA BED FOR EGD AND PEG PLACEMENT
--- NOTE | 2016-12-02 09:42 | NUR ---
LEAVING FOR SURGERY BY BED.
--- NOTE | 2016-12-02 10:47 | NUR ---
Nutrition follow-up: Pt NPO for PEG placement today. Pt unsafe for po intake per speech evaluation. Labs reviewed When medically feasible recommend starting Nepro @ 20 ml/hr with gradual increase to goal rate of 40 ml/hr; flush FT with 20 ml H2O every hour. RDN following.
--- NOTE | 2016-12-02 11:38 | NUR ---
PT BACK FORM GI LAB. A/O. DENIES PAIN OR DISCOMFORT AT THIS TIME. WEARING ABDOMINAL BINDER AT THIS TIME. VITAL SIGNS MACHINE HOOKED UP FOR FREQUENT VITALS. WILL CONT. TO MONITOR.
[2016-12-02 12:05] VITALS: BP 163/63
--- NOTE | 2016-12-02 15:15 | NUR ---
PT AMB AROUND ROOM WITH PT. TOLERATED WILL. DENIES NEEDS OR DISCOMFORT AT THIS TIME. PEG SIDE WNL. NO DRAINAGE NOTED. ABD BINDER PUT BACK IN PLACE AFTER NURSING ASSESSED SITE. WILL CONT. TO MONITOR.
[2016-12-02 16:00] VITALS: BP 156/73
--- NOTE | 2016-12-02 17:07 | NUR ---
REC'D RESULTS OF ABD X-RAY. PEG NOT IN PLACE. ALSO, SHOWS POSSIBLE ILEUS. PAGED DR. MUNROE TO NOTIFY.
--- NOTE | 2016-12-02 18:04 | NUR ---
PT LAYING IN BED PLAYING A GAME ON HIS PHONE. A/O. REQUEST PAIN MEDS FOR GENERALIZED PAIN. CONTINUES TO COUGH, BUT WEAKLY. WAS ABLE TO COUGH UP ENOUGH SPUTUM FOR A CULTURE WHICH THIS NURSE SENT TO LAB EARLIER. SPOUSE AT BEDSIDE. CALL LIGHT WITH IN REACH. WILL CONT. TO MONITOR.
--- NOTE | 2016-12-02 19:35 | NUR ---
RESUMED CAR OF PT, 02-2L, IV-R.WRIST-PROCALAMINE @50, PEG PLACED TODAY, WAS TOLD PEG ISSUPERIMPOSED OVER THE STOMACH, AND DR. ANDREWS WAS CALLED BUT NEVER CALL BACK, HAS RSavannah CHEST HEMOSPLIT, AT BEDSIDE, DENIES ANY NEEDS AT THIS TIME, CALL LIGHT IN REACH, BED IS LOW, SRX2, WILL CONTINUE TO [place]
[2016-12-02 20:49] VITALS: BP 156/79
[2016-12-03 00:02] VITALS: BP 154/83
--- NOTE | 2016-12-03 00:36 | NUR ---
SLEEPING ON R.SIDE, AT BEDSIDE, CALL LIGHT IN REACH, WILL MONITOR
[2016-12-03 04:15] VITALS: BP 144/97
--- NOTE | 2016-12-03 07:24 | NUR ---
AM ROUNDING- PT IS LAYING IN BED ON BACK WITH EYES CLOSED RESTING. NPO PER ORDER. ON EP. WILL CHECK AM LABS WHEN RESULTS COME IN. IV SEEN TO RIGHT WRIST WITH PROCALAMINE RUNNING AT 50CC. RIGHT CHEST HEMOSPLIT SEEN FOR DIALYSIS. ABDOMINAL BINDER SEEN TO ABDOMEN FOR RECENT PEG TUBE PLACEMENT. ON O2 AT 2L VIA NC. NO MONITOR. PT IS SUPPOSE TO START TUBE FEEDINGS TODAY HOWEVER, PER XRAY REPORT OF ABDOMEN, " GASTROSTOMY TUBE BALLOON IS SUPERIMPOSED OVER STOMACH. PROMINENCE OF BOWEL GAS PATTERN, MOST LIKELY REPRESENTS ILEUS." PER REPORT FROM MEDICAL OFFICE SECRETARY NURSE, YAS LACY LPN CALLED DR. ANDREWS YESTERDAY AND DID NOT RECEIVE A CALLBACK. WILL TRY TO CALL DR. ANDREWS TODAY OR SEE IF HE ROUNDS THIS MORNING TO INFORM HIM OF THIS. WILL HOLD ALL AM MEDICATIONS UNTIL RECEIVE NEW ORDERS. WILL CONTINUE TO MONITOR.
[2016-12-03 07:55] LABS: HEMATOCRIT 29.5 % (42.0-54.0); HEMOGLOBIN 8.9 g/dL (13.5-17.5); MCHC 30.2 g/dL (31.0-37.0); MCV 99.3 fL (80.0-100.0); MEAN PLATELET VOLUME 9.7 fL (7.4-10.4); PLATELET COUNT 203 10x3/uL (130-400); RBC 2.97 10x6/uL (4.20-6.10); RDW 16.9 % (11.5-14.5); WBC 20.2 10x3/uL (4.8-10.8)
[2016-12-03 07:57] LABS: ANION GAP 14.1 mmol/L (8-16); CALCIUM 8.2 mg/dL (8.5-10.1); CARBON DIOXIDE 25.9 mmol/L (21.0-32.0); CREATININE - SERUM 4.1 mg/dL (0.6-1.3); MAGNESIUM - SERUM 2.1 mg/dL (1.8-2.4); PHOSPHOROUS 3.7 mg/dL (2.5-4.9)
[2016-12-03 08:05] LABS: LYMPHOCYTES 9 % (15-50); MONOCYTES 2 % (2-11); NEUTROPHILS 88 % (40-80); PLATELET ESTIMATE NORMAL; TARGET CELLS OCC
[2016-12-03 08:55] VITALS: BP 166/79
--- NOTE | 2016-12-03 10:14 | NUR ---
Nutrition Consult: Chart reviewed. PEG placed 12/02/16. Per General Surgery ok to start TF today. Will put order in to start TF of Nepro @ 20 ml/hr. Increase 10 ml every 6-8 hours as tolerated to goal rate of 40 ml/hr. Water flushes 20 ml/hr. RD will continue to monitor pt progress.
--- NOTE | 2016-12-03 10:25 | NUR ---
CALLED DR. WHITNEY TO INFORM HIM OF COMMISSARY HELPER NURSE GETTING XRAY ON PTS PEG TUBE PLACEMENT AND INFORMED HIM OF WHAT XRAY OPINION WAS. DR. WHITNEY SAID THAT THE XRAY WOULDN'T BE ABLE TO TELL YOU WHERE THE PEG TUBE WAS PLACED AND XRAY WAS NOT NEEDED. DR. WHITNEY INSTRUCTD ME TO GO AHEAD AND START TUBE FEEDINGS ORDERED. WILL DO ORDERED.
--- NOTE | 2016-12-03 13:08 | NUR ---
TUBE FEEDINGS INITIATED ORDERED AT 20ML/HR. WILL CONTINUE TO MONITOR AND INCREASE ORDERED.
[2016-12-03 13:42] VITALS: BP 157/83
--- NOTE | 2016-12-03 14:54 | NUR ---
PT TO DIALYSIS VIA BED.
--- NOTE | 2016-12-03 19:32 | NUR ---
RESUMED CARE OF PT, PT JUST BACK FROM DIALYSIS, R. CHEST HEMOSPLIT, R. WRIST-SL, TUBE FEEDING @30, FLUSH Q1 HR @20, DAY NURSE JUST GAVE PAIN MEDS, BED IS LOW, SRX2, CALL LIGHT IN REACH, WILL CONTINUE TO MONITOR
--- NOTE | 2016-12-03 19:33 | NUR ---
Mr. Roy had hemodialysis today via his right chest hemosplit. Average blood flow was 400mls/minute. Net fluid removed was 1000 mls. Post vital signs were: B/P: 125/96, HR: 130, Temp: 98.4, Resps: 22.
[2016-12-03 20:15] VITALS: BP 161/85
[2016-12-04] VITALS (17 sets, daily range): BP systolic 67–139; BP diastolic 43–84
[2016-12-04 06:03] LABS: ANION GAP 11.6 mmol/L (8-16); CALCIUM 7.9 mg/dL (8.5-10.1); CARBON DIOXIDE 28.8 mmol/L (21.0-32.0); POTASSIUM - SERUM 3.4 mmol/L (3.5-5.1)
[2016-12-04 06:06] LABS: BASOPHILS 0.2 % (0.0-2.0); EOSINOPHILS 0 % (0-7); HEMATOCRIT 37.6 % (42.0-54.0); HEMOGLOBIN 11.4 g/dL (13.5-17.5); IMMATURE GRANULOCYTES 0.7 % (0-5); MCH 30.6 pg (26.0-34.0); MCHC 30.3 g/dL (31.0-37.0); MCV 100.8 fL (80.0-100.0); MONOCYTES 2.7 % (2-11); NEUTROPHILS 94.4 % (40-80); PLATELET COUNT 197 10x3/uL (130-400); RBC 3.73 10x6/uL (4.20-6.10); RDW 18.6 % (11.5-14.5); WBC 35.3 10x3/uL (4.8-10.8)
[2016-12-04 06:07] LABS: CREATININE - SERUM 2.5 mg/dL (0.6-1.3)
--- NOTE | 2016-12-04 07:33 | NUR ---
AM ROUNDING- PT LAYING IN BED ON BACK WITH HOB ELEVATED TO 30 DEGREES. TUBE FEEDINGS GOING AT 40ML/HR PER G-TUBE. ON EP. POTASSIUM WAS 3.4 THIS AM, SENIOR BACKUP ADMINISTRATOR NURSE, BAMBI COVERED PT PER EP. RESERVE LEFT ARM FOR POSSIBLE AVF PER REPORT FROM . IV SEEN TO RIGHT FOREARM THAT HAS NS RUNNING AT KVO (10). RIGHT CHEST HEMOSPLIT SEEN FOR DIALYSIS. PT DIALYZED YESTERDAY. ON 2L OF 02 VIA NC. URINAL AT BEDSIDE. PT IS C/O OF 5/10 BACK PAIN. WILL LOOK AND SEE WHAT PT HAS ORDERED AND GIVE HIM SOMETHING FOR PAIN. 729- ZORAIDA MEJIA STATED PTS 02 SAT WAS 88%, TURNED PTS 02 UP TO 3L AND PTS 02 SAT WENT TO 91%. WILL CONTINUE TO MONITOR.
--- NOTE | 2016-12-04 10:32 | NUR ---
PT IS UP TO CHAIR WITH ASSISTANCE FROM PHYSICAL THERAPY.
--- NOTE | 2016-12-04 12:40 | NUR ---
DR. HOLCOMB ON UNIT. ASKED ME TO PULL PT UP IN BED BECAUSE PT HAD SLID DOWN. STATED PT IS HAVING SOME REFLUX. TOLD ME TO WATCH PT FOR REFLUX AND CALL RENAL IF HAVING FURTHER PROBLEMS. PULLED PT UP IN BED AND RAISED HOB TO 40 DEGREES. INFOMRED PT THAT IF HE STARTS SLIDING DOWN USE CALL LIGHT TO GET STAFFS ASSISTANCE TO BE PULLED UP IN BED. PT AGREED. PT REQUESTING SOMETHING BETTER FOR PAIN. 1242- NOTIFIED MAHENDRA WOODRUFF ABOUT DR. HOLCOMB'S REQUEST AND CONCERNS. STATED SHE HAS A ORDER FOR CHEST XRAY AND STATED TO KEEP PTS HOB ELEVATED. INFORMED MAHENDRA WOODRUFF OF PTS REQUEST FOR "BETTER" PAIN MEDICINE. AWAITING NEW ORDERS.
--- NOTE | 2016-12-04 13:54 | NUR ---
CALLED REPORT TO ICU, SPOKE WITH IGLESIA MI AND GAVE REPORT. STATED PT WILL BE GOING TO ROOM 14. WILL CONTINUE TO MONITOR.
--- NOTE | 2016-12-04 14:11 | NUR ---
RECIEVED REPORT ON PT AT THIS TIME. WATITING TO RECIEVE PT TO UNIT.
--- NOTE | 2016-12-04 14:21 | NUR ---
RECIEVED PT AT THIS TIME VIA BED. NOTED PT TO HAVE INCREASED RESPIRATIONS AT 36 RPM, COARSE CRACKLES THROUGHOUT LUNG SOUNDS. WEAK COUGH. NOTED RESPIRATIONS USING ABDOMINAL MUSCLES. OXYGEN SATURATION AT 96% WITH 3.5L OXYGEN VIA NC. PT IS ALERT AND ORIENTED. NOTED ORDER FOR STAT ABG UPON PT ARRIVAL TO UNIT BY DR PRINCE. WILL CONTINUE PLAN OF CARE.
--- NOTE | 2016-12-04 14:31 | NUR ---
1422- PT TRANSFERRED TO ICU VIA BED. IV TO RIGHT FOREARM SALINE LOCKED AND PATENT.
--- NOTE | 2016-12-04 15:24 | NUR ---
SPOKE WITH PT RELATING TO CODE STATUS. PT STATED HE DOES NOT WANT CHEST COMPRESSIONS BUT IS OKAY WITH INTUBATION IF HE EVER NEEDS IT. PAGED DR SHANKS AT THIS TIME TO NOTIFY.
--- NOTE | 2016-12-04 16:28 | NUR ---
NOTED ORDER TO RESTART PEG FEEDINGS. WILL RESTART AT THIS TIME REQUESTED.
--- NOTE | 2016-12-04 16:44 | NUR ---
OXIMIZER PLACED AT THIS TIME AT 9L VIA NC. PT OXYGEN SATURATION AT 94%. FAMILY AT BEDSIDE. NO ACUTE DISTRESS. WILL CONTINUE PLAN OF CARE.
--- NOTE | 2016-12-04 16:47 | NUR ---
PT SPOKE WITH DR PRINCE ABOUT CODE STATUS, AFTER SPEAKING WITH DR PRINCE PT STATED HE WISHED TO BE A FULL CODE. CODE STATUS CHANGED TO FULL CODE PER PT REQUEST.
--- NOTE | 2016-12-04 17:50 | NUR ---
SALINE LOCK TO RIGHT FOREARM NOTED INFILTRATED THEREFORE DC, CATHETER TIP INTACT. WILL PLACE NEW IV AT THIS TIME.
--- NOTE | 2016-12-04 18:03 | NUR ---
NEW IV PLACED TO RIGHT AV X 5 ATTEMPTS VIA THREE NURSES TOTAL. SITE IS A 20G. FLUSHES WELL.
--- NOTE | 2016-12-04 19:00 | NUR ---
REPORT RECIEVED, INITIAL ASSESSMENT COMPLETE, PLEASE SEE FLOW SHEETS FOR DETAILS. BED LOW AND LOCKED, CALL LIGHT IN REACH. VSS AT THIS TIME, WILL CONTINUE TO MONITOR.
--- NOTE | 2016-12-04 20:01 | NUR ---
MOVED PT UP IN BED AND CHANGED DRAW SHEET. DENIES PAIN/NEEDS AT THIS TIME, WILL CONTINUE TO MONITOR.
--- NOTE | 2016-12-04 22:01 | NUR ---
2014 PT SPO2 78% RR 40, HR 143 RHYTHM CHANGE-POSS AFIB. INCREASED OXYMIZER TO 12L. PT RESPONDING TO YES AND NO QUESTIONS. 2019 OBTAINED EKG, BP 69/[address] SOO FIGUEROA. [address] VANN, PT BP 66/44 MAP 51, ORDERED 250 BOLUS NOW, ABG'S, AND TO CALL DR SHANKS. [address] SHANKS, ORDERED ANOTHER 250 BP;US IF NO IMPROVEMENT SEE, AND IF NO IMPROVEMENT AFTER THAT TO START LEVOPHED, ALSO TO CONSULT CARDIOLOGY. 2034 DR WIL FIGUEROA. 2036 DR DE LA TORRE ORDERED DIGOXIN 0.5MG NOW. 0.25MG Q4H X3 DOSES, 2038 READ AGB REPORT TO DR VANN AND HE ORDERED INTUBATION. 2042 STARTED 2ND 250ML BOLUS NS. 2043 GAVE DIGOXIN ORDERED OVER [address] VANN ORDERED A TOTAL BOLUS OF 1000ML NS. 2049 CALLED ER DOC TO INTUBATE. 2051 DR LUBIN IN ROOM, GAVE UPDATE ON PT STATUS. 2055 STARTED 3RD BOLUS OF 250ML NS. 2057 100MG SUCCS, 20MG ETO GIVEN. TUBE FEED STOPPED. 2058 SUCCESSFULLY INTUBATED. 7.0 ETT, AT 22CM, A\C, RATE 20, TV 500, O2 100%, PEEP 5. LUNG SOUNDS HEARD BILATERALLY. RESTRAINTS APPLIED AT THIS TIME. HR 116, SPO2 99% BP 93/62 MAP 68. 2105 3ML RESIDUAL FROM PEG TUBE. ALL MEDS AND FEEDING HOLDING. 2111 4TH 250ML BOLUS NS STARTED. HR 115, SPO2 99%, BP 60/59 MAP 60. 2133 BP 96/73 MAP 81, HR 110. 2145 PT WAKING UP AND STARTING TO PULL AT RESTRAINTS, AT RISK FOR SELF EXTUBATION, RR 35, STARTED PROPOFOL @ 5MCG/KG/MIN. 2149 INCREASED PROPOFOL TO 10MCG/KG/MIN. 2214 INCREASED PROPOFOL TO 15MCG/KG/MIN.
--- NOTE | 2016-12-04 22:42 | NUR ---
PT BP DROPPING, LAST 3 BP MAP 53, 52, 54 RESPECTIVELY EVERY 15 MINUTES. WILL START LEVOPHED PER DR SHANKS ORDER. ATTEMPTING NEW IV FIRST. UNSUCCESSFUL X3 SO FAR.
--- NOTE | 2016-12-04 22:58 | NUR ---
ON VENT, RESTLESS, BP STILL LOW, PAGED DR SHANKS TO GET PERMISSION TO USE HEMESPLIT FOR MEDS WE CANNOT GET ANOTHER IV ON HIM.
--- NOTE | 2016-12-04 23:00 | NUR ---
REASSESSMENT COMPLETE, PLEASE SEE FLOW SHEETS FOR DETAILS. ORAL CARE AND TURNING PROVIDED. WILL CONTINUE TO MONITOR.
[2016-12-05] VITALS (91 sets, daily range): BP systolic 64–169; BP diastolic 26–89
--- NOTE | 2016-12-05 | NUR ---
PAGED DR SHANKS
--- NOTE | 2016-12-05 00:10 | NUR ---
SPOKE WITH DR SHANKS, RECIEVED OKAY TO USE HEMESPLIT AND TO INSERT GOODE CATH.
--- NOTE | 2016-12-05 00:15 | NUR ---
STARTED LEVOPHED IN HEMESPLIT, STARTED AT 1MCG/MIN.
--- NOTE | 2016-12-05 00:27 | NUR ---
GOODE CATH INSERTED USING STERILE TECHNIQUE, 5ML VERY CLOUDY URINE RETURNED. WILL SEND TO LAB.
--- NOTE | 2016-12-05 00:28 | NUR ---
INCREASED PROPOFOL TO 25MCG/KG/MIN, INCREASED LEVOPHED TO 2MCG/MIN, WILL CONTINUE TO MONITOR.
--- NOTE | 2016-12-05 00:45 | NUR ---
INCREASED LEVOPHED TO 3MCG/MIN.
--- NOTE | 2016-12-05 01:00 | NUR ---
ORAL CARE AND TURNING PROVIDED. INCREASED PROPOFOL TO 30MCG/KG/MIN, PT TRYING TO PULL AT TUBES. BED LOW AND LOCKED, CALL LIGHT IN REACH. VSS, WILL CONTINUE TO MONITOR.
[2016-12-05 01:11] LABS: APPEARANCE TURBID (CLEAR); BILIRUBIN NEGATIVE (NEGATIVE); COLOR YELLOW (YELLOW); GLUCOSE NEGATIVE (NEGATIVE); KETONE NEGATIVE (NEGATIVE); LEUKOCYTE ESTERASE 2+ (NEGATIVE); NITRITE NEGATIVE (NEGATIVE); PROTEIN 2+ mg/dL (NEGATIVE); SPECIFIC GRAVITY 1.015 (1.005-1.020); UROBILINOGEN NORMAL (NORMAL)
[2016-12-05 01:15] LABS: BACTERIA MANY /hpf (NONE SEEN); EPITHELIAL CELLS 0-5 /hpf (0-5); GRANULAR CAST 0-5 /lpf (NONE SEEN); HYALINE CAST OCC /lpf (NONE SEEN); WHITE CELLS - URINE >50 /hpf (0-5); YEAST >1+ /hpf (NONE SEEN)
--- NOTE | 2016-12-05 01:50 | NUR ---
BP LOW, INCREASED LEVOPHED TO 3.5MCG/MIN.
--- NOTE | 2016-12-05 03:00 | NUR ---
REASSESSMENT COMPLETE, PLEASE SEE FLOW SHEETS FOR DETAILS. ORAL CARE AND TURNING PROVIDED. BED LOW AND LOCKED, CALL LIGHT IN REACH. VSS AT THIS TIME, WILL CONTINUE TO MONITOR.
[2016-12-05 04:49] LABS: BASOPHILS 0.1 % (0.0-2.0); EOSINOPHILS 0 % (0-7); HEMOGLOBIN 10.6 g/dL (13.5-17.5); IMMATURE GRANULOCYTES 0.3 % (0-5); MCH 30.5 pg (26.0-34.0); MCHC 30.3 g/dL (31.0-37.0); MCV 100.9 fL (80.0-100.0); MEAN PLATELET VOLUME 10.9 fL (7.4-10.4); MONOCYTES 3.3 % (2-11); NEUTROPHILS 94.3 % (40-80); PLATELET COUNT 161 10x3/uL (130-400); RBC 3.47 10x6/uL (4.20-6.10); RDW 18.4 % (11.5-14.5); WBC 28.9 10x3/uL (4.8-10.8)
--- NOTE | 2016-12-05 05:00 | NUR ---
ORAL CARE AND TURNING PROVIDED. NO SIGNS OF ACUTE DISTRESS NOTED. BED LOW AND LOCKED. WILL CONTINUE TO MONITOR.
[2016-12-05 05:10] LABS: ANION GAP 17.1 mmol/L (8-16); CALCIUM 8.4 mg/dL (8.5-10.1); CARBON DIOXIDE 23.5 mmol/L (21.0-32.0); POTASSIUM - SERUM 4.6 mmol/L (3.5-5.1); VANCOMYCIN - RANDOM 16.9 ug/mL (10.0-20.0)
[2016-12-05 05:16] LABS: CREATININE - SERUM 3.6 mg/dL (0.6-1.3)
--- NOTE | 2016-12-05 08:07 | NUR ---
0800- PT INTUBATED AND ON VENT FI02 40%, A/C 20. RESP 27. LEVOPHED AT 3.5. PT TURNED AND MOUTH CARE COMPLETE. HOB RAISED TO 30 DEG. SBP DROPS TO 60 MAP 55. LEVOPHED INCREASED TO 7MCG/KG/MIN.
--- NOTE | 2016-12-05 09:37 | NUR ---
0938- FAMILY HERE, DISCUSSED PROGNOSIS AND CODE STATUS. FAMILY/ AWARE OF PROGNOSIS BEING POOR AND CRITICAL CONDITION OF PT. EXPLANED THAT PT'S WISHES ARE FULL CODE WITH NO CHEST COMPRESSIONS.
--- NOTE | 2016-12-05 10:37 | NUR ---
NUTRITION MONITORING & EVAL CHART REVIEWED. NEPRO TUBE FEEDS CURRENTLY OFF. REMAINS ON VENT. PER MD NURSING TO RESUME TUBE FEEDS THIS AFTERNOON @ 10 CC/HR. RD FOLLOWING
[2016-12-05 11:12] LABS: AEROBE ID Final report (())
--- NOTE | 2016-12-05 14:24 | NUR ---
1400- CALLED [facility] WITH CARDIOLOGY AND REPORTED HR 140'S, TEMP AND LEVOPHED TITRATING UPWARD ALL DAY. REC'D ORDERS FOR CORDARONE. DR KENNEY HERE. TYLENOL SUPP GIVEN. BUPERNEX GIVEN BECAUSE FAMILY REPORT THAT PT DOES TAKE DAILY PAIN REGMINE FOR CHRONIC BACK PAIN. HR NOW DECREASED TO 124. TEMP STILL 101.1. BS DRAWN SPUTUM CULT TAKEN.
[2016-12-05 16:11] LABS: ANCA - ANTIMYELOPEROXIDASE 47.9 U/mL (0.0-9.0); ANCA - ANTIPROTEINASE 3 <3.5 U/mL (0.0-3.5); ANCA - ATYPICAL <1:20 titer (Neg:<1:20); ANCA - CYTOPLASMIC <1:20 titer (Neg:<1:20)
--- NOTE | 2016-12-05 19:00 | NUR ---
REPORT RECIEVED, INITIAL ASSESSMENT COMPLETE, PLEASE SEE FLOW SHEETS FOR DETAILS. ORAL CARE AND TURNING PROVIDED. BED LOW AND LOCKED. VSS AT THIS TIME, WILL CONTINUE TO MONITOR.
--- NOTE | 2016-12-05 21:00 | NUR ---
ORAL CARE AND TURNING PROVIDED. NO S&S OF ACUTE DISTRESS NOTED. BED LOW AND LOCKED, CALL LIGHT IN REACH. VSS AT THIS TIME, WILL CONTINUE TO MONITOR.
--- NOTE | 2016-12-05 22:00 | NUR ---
DECREASED LEVOPHED TO 23 FROM 25, SBP 143.
--- NOTE | 2016-12-05 23:00 | NUR ---
REASSESSMENT COMPLETE, PLEASE SEE FLOW SHEETS FOR DETAILS. ORAL CARE AND TURNING PROVIDED. BED LOW AND LOCKED, CALL LIGHT IN REACH. NO S&S OF ACUTE DISTRESS NOTED. PT SEDATED. TEMP 101.6, WILL SEE EMAR FOR ORDERS. ALL OTHER VSS, WILL CONTINUE TO MONITOR.
[2016-12-06] VITALS (61 sets, daily range): BP systolic 90–161; BP diastolic 35–96
--- NOTE | 2016-12-06 01:00 | NUR ---
ORAL CARE AND TURNING PROVIDED. BED LOW AND LOCKED. WRIST RESTRAINTS CHECKED AND SECURED WITH QUICK RELEASE KNOTS. SCD'S ON AND RUNNING. VSS AT THIS TIME, WILL CONTINUE TO MONITOR.
--- NOTE | 2016-12-06 02:43 | NUR ---
REASSESSMENT COMPLETE, PLEASE SEE FLOW SHEETS FOR DETAILS. AIR OVERLAY MATRESS PUT ON BED. PT POSITIONED FOR COMFORT WITH HEALS BRIDGED AND ARMS ON PILLOWS. GOODE CARE PROVIDED USING BARDS WIPES. FULL BED BATH AND LINEN CHANGE. ORAL CARE PROVIDED. VSS AT THIS TIME, PT TOLERATED WELL. SBP 158 TURNED LEVOPHED DOWN TO 20. WILL CONTINUE TO MONITOR.
[2016-12-06 04:37] LABS: BASOPHILS 0.2 % (0.0-2.0); EOSINOPHILS 0 % (0-7); HEMATOCRIT 33.4 % (42.0-54.0); HEMOGLOBIN 10.4 g/dL (13.5-17.5); IMMATURE GRANULOCYTES 0.6 % (0-5); LYMPHOCYTES 2.8 % (15-50); MCHC 31.1 g/dL (31.0-37.0); MCV 99.7 fL (80.0-100.0); MONOCYTES 3.2 % (2-11); NEUTROPHILS 93.2 % (40-80); PLATELET COUNT 179 10x3/uL (130-400); RBC 3.35 10x6/uL (4.20-6.10); RDW 18.5 % (11.5-14.5); WBC 31.4 10x3/uL (4.8-10.8)
[2016-12-06 05:00] LABS: CARBON DIOXIDE 20.2 mmol/L (21.0-32.0); PHOSPHOROUS 5.7 mg/dL (2.5-4.9); VANCOMYCIN - RANDOM 22.7 ug/mL (10.0-20.0)
--- NOTE | 2016-12-06 05:00 | NUR ---
ORAL CARE AND TURNING PROVIDED. BED LOW AND LOCKED, VSS AT THIS TIME, WILL CONTINUE TO MONITOR.
[2016-12-06 05:04] LABS: ANION GAP 18.4 mmol/L (8-16); CREATININE - SERUM 4.7 mg/dL (0.6-1.3); POTASSIUM - SERUM 5.6 mmol/L (3.5-5.1); TROPONIN-I 5.61 ng/mL (0.000-0.060)
--- NOTE | 2016-12-06 12:24 | NUR ---
0933-HD STARTED, 107/79, LEVOPHED INFUSING. 1015- BP 77/40 REVERSED PULL AND TITRATED PRESSORS TO OBTAIN MAP 60. BP CONTINUES TO DROP. FLUID BOLUS ON HD GIVEN BY HD NURSE. ALBUMIN STARTED. BP DID RESPOND QUICKLY TO MAP ABOVE 60 AGAIN. 1215- BP DROPS FLUID BOLUS GIVEN AND PT DID RESPOND QUICKLY TO 200CC NS.
--- NOTE | 2016-12-06 12:54 | NUR ---
Mr. Roy had bedside hemodialysis today via his right chest Hemosplit from 932 until 123. Pt. was very hypotesive on dialysis requiring the levophed infusion to be increased significantly. Pt. ended up having to be 200 mls fluid positive due to hypotension. Post treatment vs improved. B/P: 148/83, HR: 95, Temp: 95.9, Resps: 30.
[2016-12-06 13:29] LABS: BASOPHILS 0.1 % (0.0-2.0); EOSINOPHILS 0 % (0-7); HEMATOCRIT 28.6 % (42.0-54.0); HEMOGLOBIN 9.1 g/dL (13.5-17.5); IMMATURE GRANULOCYTES 0.6 % (0-5); LYMPHOCYTES 1.3 % (15-50); MCHC 31.8 g/dL (31.0-37.0); MCV 97.3 fL (80.0-100.0); MEAN PLATELET VOLUME 10.7 fL (7.4-10.4); MONOCYTES 2.7 % (2-11); NEUTROPHILS 95.3 % (40-80); PLATELET COUNT 134 10x3/uL (130-400); RBC 2.94 10x6/uL (4.20-6.10); RDW 18.6 % (11.5-14.5)
--- NOTE | 2016-12-06 13:35 | NUR ---
ARRYTHMIAS NOTED B/P 145/78. LEVOPHED TITRATING DOWN AND DR SPIVEY HERE. EKG DOWN AND LABS DRAWN. CARDIOLOGY PAGED.
[2016-12-06 13:41] LABS: CALCIUM 7.4 mg/dL (8.5-10.1); MAGNESIUM - SERUM 1.7 mg/dL (1.8-2.4); PHOSPHOROUS 3.4 mg/dL (2.5-4.9)
[2016-12-06 13:42] LABS: ANION GAP 12.5 mmol/L (8-16); CARBON DIOXIDE 27.2 mmol/L (21.0-32.0); CREATININE - SERUM 2.1 mg/dL (0.6-1.3); POTASSIUM - SERUM 3.7 mmol/L (3.5-5.1)
--- NOTE | 2016-12-06 14:05 | NUR ---
1400- LEVOPHED TITRATED DOWN TO 10MCG/MIN. BP 116/78, RYTHM ON CM WITH LESS ECTOPY AND IS RATE OF 87 TO 101 AND IS AFIB. [facility] NOTIFIED RE: ELEVATED TROPONIN AND RECENT LABS. REC'D NEW ORDERS TO REPLACE MAG AND CALCIUM.
--- NOTE | 2016-12-06 19:00 | NUR ---
REPORT RECIEVED, INITIAL ASSESSMENT COMPLETE, PLEASE SEE FLOW SHEETS FOR DETAILS. ORAL CARE AND TURNING PROVIDED. PT RESPONDS TO DEEP STIMULI. VSS AT THIS TIME. WILL CONTINUE TO MONITOR.
--- NOTE | 2016-12-06 20:15 | NUR ---
UPDATE CALLED TO DR. SPIVEY, NEW ORDERS RECIEVED,
--- NOTE | 2016-12-06 20:20 | NUR ---
SPOKE WITH DR GODWIN, RECIEVED ORDERS FOR RT TO MOVE ETT TO 20CM AND ONLY HAVE BALLOON INFALATED TO 10-15 CC. THIS WAS DONE IMMEDIATELY.
--- NOTE | 2016-12-06 21:30 | NUR ---
ORAL CARE AND TURNING PROVIDED. BED LOW AND LOCKED. SCD'S ON AND RUNNING, SKIN CHECKED. RESTRAINTS CHECK AND SECURED WITH QUICK RELEASE KNOTS. VSS AT THIS TIME, WILL CONTINUE TO MONITOR.
--- NOTE | 2016-12-06 23:43 | NUR ---
REASSESSMENT COMPLETE, PLEASE SEE FLOW SHEETS FOR DETAILS. ORAL CARE AND TURNING PROVIDED. VSS AT THIS TIME, WILL CONTINUE TO MONITOR.
[2016-12-07] VITALS (42 sets, daily range): BP systolic 103–156; BP diastolic 55–82
--- NOTE | 2016-12-07 01:00 | NUR ---
ORAL CARE AND TURNING PROVIDED. RIGHT AC PIV LEAKING, THIS WAS REMOVED AND LINES PUT ON MANIFOLD ON HEMOSPLIT. SKIN TEARS FORMED FROM REMOVING TAPE FROM SKIN, THIS WAS DRESSED WITH ADAPTIC, 4X4'S AND GAUZE WRAP - NO TAPE. STERILE DRESSING CHANGE PERFORMED. VSS, WILL CONTINUE TO MONITOR.
--- NOTE | 2016-12-07 02:45 | NUR ---
SEDATED, NO S&S OF ACUTE DISTRESS NOTED. VSS AT THIS TIME, WILL CONTINUE TO MONITOR.
--- NOTE | 2016-12-07 03:55 | NUR ---
REASSESSMENT COMPLETE, PLEASE SEE FLOW SHEETS FOR DETAILS. ORAL CARE AND TURNING PROVIDED. VSS AT THIS TIME, WILL CONTINUE TO MONITOR.
[2016-12-07 04:52] LABS: BASOPHILS 0 % (0.0-2.0); EOSINOPHILS 0 % (0-7); HEMATOCRIT 24.7 % (42.0-54.0); HEMOGLOBIN 8.3 g/dL (13.5-17.5); IMMATURE GRANULOCYTES 0.4 % (0-5); LYMPHOCYTES 1.5 % (15-50); MCH 31.7 pg (26.0-34.0); MCHC 33.6 g/dL (31.0-37.0); MCV 94.3 fL (80.0-100.0); MEAN PLATELET VOLUME 10.9 fL (7.4-10.4); MONOCYTES 2.3 % (2-11); NEUTROPHILS 95.8 % (40-80); PLATELET COUNT 100 10x3/uL (130-400); RBC 2.62 10x6/uL (4.20-6.10); RDW 18.2 % (11.5-14.5); WBC 27.5 10x3/uL (4.8-10.8)
[2016-12-07 04:57] LABS: ALBUMIN 1.5 g/dL (3.4-5.0); ANION GAP 14.6 mmol/L (8-16); BILIRUBIN - DIRECT 0.24 mg/dL (0.00-0.30); BILIRUBIN - INDIRECT 0.35 mg/dL (0.00-1.00); BILIRUBIN - TOTAL 0.59 mg/dL (0.2-1.3); CALCIUM 7.1 mg/dL (8.5-10.1); CARBON DIOXIDE 25.2 mmol/L (21.0-32.0); MAGNESIUM - SERUM 1.9 mg/dL (1.8-2.4); PHOSPHOROUS 4.2 mg/dL (2.5-4.9); POTASSIUM - SERUM 3.8 mmol/L (3.5-5.1); PROTEIN - SERUM 4.6 g/dL (6.4-8.2); VANCOMYCIN - RANDOM 15.7 ug/mL (10.0-20.0)
[2016-12-07 04:58] LABS: CREATININE - SERUM 2.8 mg/dL (0.6-1.3); TROPONIN-I 4.104 ng/mL (0.000-0.060)
--- NOTE | 2016-12-07 05:00 | NUR ---
ORAL CARE AND TURNING PROVIDED. FULL LINEN CHANGE AND BED BATH PROVIDED. VSS AT THIS TIME, WILL CONTINUE TO MONITOR.
--- NOTE | 2016-12-07 07:45 | NUR ---
0745- REC'D PT SEDATED AND INTUBATED. ASSESSMENT COMPLETE. SEE FLOWSHEET. WRIST RESTRAINTS IN PLACE BILATERAL. TITRATING LEVOPHED FOR DESIRED B/P EFFECT. RIGHT HEMESPLIT NOTED INTACT AND USING FOR IV INFUSION PER VERBAL ORDER REC'D PER PREVIOUS SHIFT, IGLESIA QUICK. NEPRO TF INFUSING, RESIDUALS LESS THAN 5CC. INCREASED TO 20CC/HR. 0950- SPOKE WITH PT DAUGHTER VIA PHONE, UPDATE PROVIDED. CODE OBTAINED. 1130- BRONCHOSCOPY CANCELLED PER DR SPIVEY. 1345- SPOKE WITH PT DAUGHTER, ANOTHER UPDATE PROVIDED AND QUESTIONS ANSWERED. 1530- REASSESSMENT COMPLETE. NO CHANGE IN PREVIOUS ASSESSMENT. TF INCREASED TO 30CC/HR, RESIDUALS LESS THAN 5 CC. 1700- BED BATH AND COMPLETE LINEN CHANGE PROVIDED. DRSG CHANGED TO RIGHT ARM AND PEG TUBE.
--- NOTE | 2016-12-07 10:01 | NUR ---
NUTRITION MONITORING & EVAL CHART REVIEWED. PT REMAINS ON VENT. NEPRO NOW @ 20 CC/HR. NURSING AWARE OF GOAL RATE 40 CC/HR. RD FOLLOWING
[2016-12-07 14:24] LABS: FUNGUS STAIN Final report (())
[2016-12-07 15:23] LABS: AFB SPECIMEN PROCESSING Concentration (())
--- NOTE | 2016-12-07 19:45 | NUR ---
ASSESSMENT COMPLETE. S1S2/IRREGULAR. PT SEDATED ON VENT. RR CRACKLES BILATERALLY IN UPPER LOBES; DIMINISHED BILATERALLY IN LOWER LOBES. PERRLA. RADIAL AND PEDAL PULSES PALPATED; +1. SKIN PALE; WRINKLED; THIN. GENERALIZED BRUISING; REDDENED AREAS; SKIN TEARS. ANURIC. PT BUTTOCKS REDDENED; BLANCHES. SKIN WARM/DRY. ORAL CARE PROVIDED.
--- NOTE | 2016-12-07 21:56 | NUR ---
FAMILY CALLED. CODE GIVEN. UPDATE GIVEN.
--- NOTE | 2016-12-07 23:15 | NUR ---
REASSESSMENT COMPLETE. NO CHANGES FROM PREVIOUS ASSESSMENT.
[2016-12-08] VITALS (24 sets, daily range): BP systolic 98–139; BP diastolic 50–76
--- NOTE | 2016-12-08 03:10 | NUR ---
REASSESSMENT COMPLETE. NO CHANGES FROM PREVIOUS ASSESSMENT. WILL CONTINUE TO MONITOR.
[2016-12-08 04:29] LABS: BASOPHILS 0.1 % (0.0-2.0); EOSINOPHILS 0 % (0-7); HEMATOCRIT 23.6 % (42.0-54.0); HEMOGLOBIN 7.9 g/dL (13.5-17.5); IMMATURE GRANULOCYTES 0.5 % (0-5); LYMPHOCYTES 1.7 % (15-50); MCH 31.2 pg (26.0-34.0); MCHC 33.5 g/dL (31.0-37.0); MCV 93.3 fL (80.0-100.0); MEAN PLATELET VOLUME 10.5 fL (7.4-10.4); MONOCYTES 1.6 % (2-11); NEUTROPHILS 96.1 % (40-80); RBC 2.53 10x6/uL (4.20-6.10); RDW 18.3 % (11.5-14.5)
[2016-12-08 04:42] LABS: PLATELET COUNT 67 10x3/uL (130-400); WBC 18.4 10x3/uL (4.8-10.8)
[2016-12-08 04:48] LABS: % SATURATION 49 % (15-55); IRON 34 ug/dl (35-150); TOTAL IRON BIND CAPACITY 69 ug/dl (260-445); UNSAT IRON BIND CAPACITY 35 ug/dl (150-375)
[2016-12-08 05:11] LABS: ANION GAP 16.6 mmol/L (8-16); CARBON DIOXIDE 22.3 mmol/L (21.0-32.0); CREATININE - SERUM 3.3 mg/dL (0.6-1.3); MAGNESIUM - SERUM 1.9 mg/dL (1.8-2.4); PHOSPHOROUS 4.2 mg/dL (2.5-4.9); POTASSIUM - SERUM 3.9 mmol/L (3.5-5.1); VANCOMYCIN - RANDOM 22.5 ug/mL (10.0-20.0)
[2016-12-08 05:19] LABS: CALCIUM 6.9 mg/dL (8.5-10.1); TROPONIN-I 2.187 ng/mL (0.000-0.060)
[2016-12-08 05:24] LABS: PLATELET ESTIMATE DECREASED
[2016-12-08 05:38] LABS: ALBUMIN 1.5 g/dL (3.4-5.0)
--- NOTE | 2016-12-08 07:30 | NUR ---
0730- REC'D PT SEDATED AND VENTILATED. ASSESSMENT COMPLETE. SEE FLOWSHEET. TF INFUSING AT 30CC/HR, INCREASED TO 40 CC/HR PER ORDER. 0950- SPOKE WITH DAUGHTER VIA PHONE, UPDATE PROVIDED. 1130- REASSESSMENT COMPLETE. SEE FLOWSHEET. NO CHANGES SINCE PREVIOUS ASSESSMENT. 1330- PT RESTING ON VENTILATOR. NO CHANGES. 1545- FAMILY AT BEDSIDE TO SPEAK WITH DR SPIVEY. UPDATE PROVIDED.
--- NOTE | 2016-12-08 18:18 | NUR ---
CIRSTOBAL GARRISON PAGEErin, PER FAMILIES REQUEST, TO COME AND PRAY WITH THE PATIENT. WILL WAIT FOR RETURN CALL.
--- NOTE | 2016-12-08 18:22 | NUR ---
CRISTOBAL GARRISON CALLED BACK. SAID HE WOULD BE HERE IN 10-15 MINUTES.
--- NOTE | 2016-12-08 23:20 | NUR ---
1919- REPORT RECVD. CARE ASSUMED. INITIAL ASSMNT COMPLETED. SEE FLOWSHEET FOR ALL FINDINGS. SEDATED ON MECH VENT. ETT PATENT AND SECURED. ORAL CARE PER VAP. LUNG SOUNDS COARSE THRU OUT, DIM IN BASES.SPO2 98%. SR ON THE MONITOR AT THIS ITME. PULSES PALP, WEAK. SCDS IN USE. AFEBRILE. ABD SOFT,FLAT. BSA X4. PEG TUBE CDI, INFUSING TF AT GOAL RATE. ANURIC. RIGHT CHEST HEMASPLIT INTACT AND INFUSING IVF. TURNED AND REPOSITIONED. AIR OVERLAY INUSE FOR SKIN INTEGRITY AND COMFORT. RESTRAINTS PER PROTOCOL. HOB UP. CONT CURRENT POC. 2124- HS MEDS GIVEN. ORAL CARE PER VAP. TURNED AND REPOSITIONED. VSS. HOB UP. CONT CURRENT POC. 2319- REASSESSMENT COMPLETED. SEE FLOWSHEET FOR ALL FINDINGS. SEDATED ON MECH VENT. ETT PATENT AND SECURED. ORAL CARE PER VAP. LUNG SOUNDS COARSE THRU OUT, DIM IN BASES.SPO2 98%. SR ON THE MONITOR AT THIS ITME. PULSES PALP, WEAK. SCDS IN USE. AFEBRILE. ABD SOFT,FLAT. BSA X4. PEG TUBE CDI, INFUSING TF AT GOAL RATE. ANURIC. RIGHT CHEST HEMASPLIT INTACT AND INFUSING IVF. TURNED AND REPOSITIONED. AIR OVERLAY INUSE FOR SKIN INTEGRITY AND COMFORT. RESTRAINTS PER PROTOCOL. HOB UP. CONT CURRENT POC.
[2016-12-09] VITALS (63 sets, daily range): BP systolic 64–151; BP diastolic 33–88
--- NOTE | 2016-12-09 01:06 | NUR ---
TURNED AND REPOSITIONED. ORAL CARE PER VAP. VSS. SEDATED WITH MECH VENT INTACT. NO DISTRESS. RESTRAINTS PER PROTOCOL. HOB UP. CONT CURRENT POC.
--- NOTE | 2016-12-09 03:20 | NUR ---
REASSESSMENT COMPLETED. SEE FLOWSHEET FOR ALL FINDINGS. SEDATED ON MECH VENT. ETT PATENT AND SECURED. ORAL CARE PER VAP. LUNG SOUNDS COARSE THRU OUT, DIM IN BASES.SPO2 98%. SR ON THE MONITOR AT THIS ITME. PULSES PALP, WEAK. SCDS IN USE. AFEBRILE. ABD SOFT,FLAT. BSA X4. PEG TUBE CDI, INFUSING TF AT GOAL RATE. ANURIC. RIGHT CHEST HEMASPLIT INTACT AND INFUSING IVF. TURNED AND REPOSITIONED. AIR OVERLAY INUSE FOR SKIN INTEGRITY AND COMFORT. RESTRAINTS PER PROTOCOL. HOB UP. CONT CURRENT POC.
[2016-12-09 04:56] LABS: BASOPHILS 0 % (0.0-2.0); EOSINOPHILS 0 % (0-7); HEMATOCRIT 25.4 % (42.0-54.0); HEMOGLOBIN 8.5 g/dL (13.5-17.5); IMMATURE GRANULOCYTES 0.9 % (0-5); LYMPHOCYTES 1.3 % (15-50); MCH 31.6 pg (26.0-34.0); MCHC 33.5 g/dL (31.0-37.0); MCV 94.4 fL (80.0-100.0); MONOCYTES 1.6 % (2-11); NEUTROPHILS 96.2 % (40-80); PLATELET COUNT 70 10x3/uL (130-400); RBC 2.69 10x6/uL (4.20-6.10); RDW 18.6 % (11.5-14.5); WBC 26.7 10x3/uL (4.8-10.8)
[2016-12-09 05:02] LABS: APTT 33.1 SECONDS (22.8-39.4); INR 1.24 (0.85-1.17); PROTIME 15.5 SECONDS (11.6-15.0)
[2016-12-09 05:03] LABS: D-DIMER-QUANTITATIVE 3.85 ug/mLFEU (0.20-0.54)
--- NOTE | 2016-12-09 05:20 | NUR ---
TURNED AND REPOSITIONED. ORAL CARE PER VAP. VSS. HOB UP. RESTRAINTS PER PROTOCOL. CONT CURRENT POC.
[2016-12-09 05:43] LABS: ALBUMIN 1.3 g/dL (3.4-5.0); ANION GAP 20.2 mmol/L (8-16); BILIRUBIN - TOTAL 0.63 mg/dL (0.2-1.3); CREATININE - SERUM 3.9 mg/dL (0.6-1.3); MAGNESIUM - SERUM 1.9 mg/dL (1.8-2.4); PHOSPHOROUS 4.9 mg/dL (2.5-4.9); POTASSIUM - SERUM 4.2 mmol/L (3.5-5.1)
[2016-12-09 05:48] LABS: PROTEIN - SERUM 4.7 g/dL (6.4-8.2)
[2016-12-09 05:49] LABS: CALCIUM 6.5 mg/dL (8.5-10.1)
--- NOTE | 2016-12-09 07:00 | NUR ---
REC'D REPORT AND RESUMED CARE, ETT TO VENTILATION AND SECURED, TACHYPNIC 28 BPM, RATE SET AT 20, WITH 40% FIO2, RIGHT SC HEMESPLEIT WITH CDI DRESSING, CORDARONE @ 0.5 MG/HR, NS @ 75 CC/HR, AND PROPOFAL @ 45 MCG, PEG TUBE WITH PULMOCARE AT 40 CC/HR, RESIDUAL CHESCK 15 CC, REDNESS NOTED AROUND TUBE ORIFICE, AIR OVERLAY MATTRESS IN USE, SCD'S B/L, RIGHT ARM WITH DRESSING HAS SEROUS DRAINAGE TO KERLEX, ASSESSMENT COMPLETE PER FLOWSHEET, ORAL CARE AND SUCTION COMPLETED, OPENS EYES DOES NOT FOLLOW COMMANDS
--- NOTE | 2016-12-09 08:31 | NUR ---
PC FROM [facility] IN LAB, + BLOOD CULTURE FOR YEAST WITH SAMPLE DRAWN FROM BLUE PORT
--- NOTE | 2016-12-09 09:03 | NUR ---
SBP 77, WITH MAP 43, LEVAPHED INITIATED AT 5 MCG
--- NOTE | 2016-12-09 09:18 | NUR ---
FAMILY AT BEDSIDE STATUS UPDATED, PRAYER AT BEDSIDE, AWAITING TO SPEAK RENAL , NO OTHER NEEDS AT THIS TIME
--- NOTE | 2016-12-09 09:58 | NUR ---
NUTRITION MONITORING & EVAL CHART REVIWED. PT REMAINS ON VENT. NEPRO TUBE FEEDS AT GOAL RATE 40 CC/HR. RD FOLLOWING
--- NOTE | 2016-12-09 11:00 | NUR ---
FOOD PARTICAL EMESIS IN MOUTH AND ON PILLOW, TF OFF, ORAL CARE AND SUCTION COMPLETED, BATH AND LINEN CHANGE COMPLETE, BM SMEAR TO PERIPAD, REPOSITIONED TO RIGHT SIDE WITH PILLOW TO BACK, B/L ARMS WITH WEEPING, SKINCARE AND GAUZE DRESSING SECURED WITH KERLEX APPLIED, ASSESSMENT COMPLETE PER FLOWSHEET, TITRATED LEVAPHED TO 15 MCG, SBP 78, MAP 55
--- NOTE | 2016-12-09 12:00 | NUR ---
WIFT DAUGHTER AND GRANDSON AT BEDSIDE, STATUS UPDATE, NO NEEDS AT THIS TIME
--- NOTE | 2016-12-09 15:52 | NUR ---
SBP 67, MAP 51, LEVAPHED TITRATED TO 30 MCG
--- NOTE | 2016-12-09 15:59 | NUR ---
NS 500 CC BOLUS INITIATED PER ORDER
--- NOTE | 2016-12-09 16:00 | NUR ---
I AND O'S COMPLETED, DR. PEÑA HER FOR EVAL, COUNSELED WITH RE: POOR PROGNOSIS, DECISION MADE TO HAVE FAMILY COME TO BE WITH HER AT BEDSIDE
--- NOTE | 2016-12-09 18:30 | NUR ---
SUDHEER AT BEDSIDE, STATUS UPDATED, WOULD LIKE TO HAVE PATIENT TAKEN HOME ON HOSPICE IF FAMILY DECIDES TO TAKE HIM OFF THE VENT, EDUCATED ON THE CHOICE WILL BE UP TO MRS. YOON, VERBALIZED UNDERSTANDING
--- NOTE | 2016-12-09 23:25 | NUR ---
1919- REPORT RECVD. CARE ASSUMED. INITIAL ASSMNT COMPLETED. SEE FLOWSHEET FOR ALL FINDINGS. SEDATED ON MECH VENT. ETT PATENT AND SECURED. ORAL CARE PER VAP. LUNG SOUNDS COARSE THRU OUT, DIM IN BASES.SPO2 98%. SR ON THE MONITOR AT THIS ITME. LEVOPHED GTT TITRATION IN PLACE FOR HYPOTENSION. PULSES PALP, WEAK. SCDS IN USE. AFEBRILE. ABD SOFT,FLAT. BSA X4. PEG TUBE CDI. TF ON HOLD. ANURIC. RIGHT CHEST HEMASPLIT INTACT AND INFUSING IVF. TURNED AND REPOSITIONED. AIR OVERLAY IN USE FOR SKIN INTEGRITY AND COMFORT. RESTRAINTS PER PROTOCOL. HOB UP. CONT CURRENT POC. 2119- FAMILY AT BEDSIDE. UPDATE GIVEN. ORAL CARE PER VAP. TURNED AND REPOSITIONED. VSS. HOB UP. CONT CURRENT POC. 2319- REASSESSMENT COMPLETED. SEE FLOWSHEET FOR ALL FINDINGS. SEDATED ON MECH VENT. ETT PATENT AND SECURED. ORAL CARE PER VAP. LUNG SOUNDS COARSE THRU OUT, DIM IN BASES.SPO2 98%. SR ON THE MONITOR AT THIS ITME. PULSES PALP, WEAK. SCDS IN USE. AFEBRILE. ABD SOFT,FLAT. BSA X4. PEG TUBE CDI. ANURIC. RIGHT CHEST HEMASPLIT INTACT AND INFUSING IVF. TURNED AND REPOSITIONED. AIR OVERLAY IN USE FOR SKIN INTEGRITY AND COMFORT. RESTRAINTS PER PROTOCOL. HOB UP. CONT CURRENT POC.
[2016-12-10] VITALS (69 sets, daily range): BP systolic 103–192; BP diastolic 39–70
--- NOTE | 2016-12-10 01:04 | NUR ---
TURNED AND REPOSITIONED. ORAL CARE PER VAP. SR ON THE MONITOR. LEVOPHED GTT INFUSING FOR SYS B/P PATAMETERS. SEDATED. MECH VENT INTACT. HOB UP. CONT CURRENT POC.
--- NOTE | 2016-12-10 03:30 | NUR ---
REASSESSMENT COMPLETED. SEE FLOWSHEET FOR ALL FINDINGS. SEDATED ON MECH VENT. ETT PATENT AND SECURED. ORAL CARE PER VAP. LUNG SOUNDS COARSE THRU OUT, DIM IN BASES.SPO2 98%. SR ON THE MONITOR AT THIS ITME. PULSES PALP, WEAK. SCDS IN USE. AFEBRILE. ABD SOFT,FLAT. BSA X4. PEG TUBE CDI. ANURIC. RIGHT CHEST HEMASPLIT INTACT AND INFUSING IVF. TURNED AND REPOSITIONED. AIR OVERLAY IN USE FOR SKIN INTEGRITY AND COMFORT. RESTRAINTS PER PROTOCOL. HOB UP. CONT CURRENT POC.
[2016-12-10 04:43] LABS: BASOPHILS 0.1 % (0.0-2.0); EOSINOPHILS 0 % (0-7); HEMATOCRIT 20.3 % (42.0-54.0); IMMATURE GRANULOCYTES 1.1 % (0-5); LYMPHOCYTES 1.7 % (15-50); MCH 31.3 pg (26.0-34.0); MCHC 33.5 g/dL (31.0-37.0); MCV 93.5 fL (80.0-100.0); MEAN PLATELET VOLUME 11.6 fL (7.4-10.4); MONOCYTES 3.1 % (2-11); PLATELET COUNT 62 10x3/uL (130-400); RBC 2.17 10x6/uL (4.20-6.10); RDW 18.9 % (11.5-14.5); WBC 26.6 10x3/uL (4.8-10.8)
[2016-12-10 04:44] LABS: HEMOGLOBIN 6.8 g/dL (13.5-17.5)
--- NOTE | 2016-12-10 05:15 | NUR ---
TURNED AND REPOSITIONED. REMAINS ON LEVOPHED FOR PRESSURE SUPPORT.
[2016-12-10 05:17] LABS: BILIRUBIN - TOTAL 0.6 mg/dL (0.2-1.3); POTASSIUM - SERUM 3.6 mmol/L (3.5-5.1); VANCOMYCIN - RANDOM 12.1 ug/mL (10.0-20.0)
[2016-12-10 05:18] LABS: ANION GAP 22.2 mmol/L (8-16); CARBON DIOXIDE 12.4 mmol/L (21.0-32.0); CREATININE - SERUM 2.9 mg/dL (0.6-1.3); PHOSPHOROUS 3.4 mg/dL (2.5-4.9)
[2016-12-10 05:19] LABS: ALBUMIN 0.7 g/dL (3.4-5.0); CALCIUM 4.3 mg/dL (8.5-10.1); PROTEIN - SERUM 3.1 g/dL (6.4-8.2); TROPONIN-I 1.58 ng/mL (0.000-0.060)
--- NOTE | 2016-12-10 06:08 | NUR ---
MAG LEVEL TREATED PER ELECTROLYTE PROTOCOL
--- NOTE | 2016-12-10 07:49 | OP ---
PATIENT NAME: LUL ROY MEDICAL RECORD: [id number] :35 LOCATION:[facility] D.[id number] ADMISSION DATE:11/24/16 SURGEON: JOMAR THOMPSON MD DATE OF OPERATION: 11/25/2016 PREOPERATIVE DIAGNOSES: End-stage renal disease, additional comorbidities, cachexia, severe chronic obstructive pulmonary disease and dyspnea. POSTPERATIVE DIAGNOSES: End-stage renal disease, additional comorbidities, cachexia, severe chronic obstructive pulmonary disease and dyspnea. OPERATION PERFORMED: Implantation of a tunneled central dialysis catheter, HemoSplit catheter inserted via the right internal jugular vein under local. SURGEON: Jomar Thompson MD ANESTHESIA: Local with monitoring per VIDEO GAME SCRIPT WRITER. REFERRING PHYSICIAN: Dr. Addy Arellano. PREOPERATIVE NOTE: Mr. Roy is an 81-year-old white male patient from [place], [place] near [place]. He was seen in the clinic by Dr. Addy Arellano earlier this week and was scheduled for me to perform creation of an AV fistula and insertion of a dialysis catheter and he was brought down for admission on the evening before. Seen this morning, the patient is extremely dyspneic and cachectic elderly gentleman who is at this time, probably a very poor candidate for an operation such as fistula or graft creation. I have consulted with Dr. Ferreira and we planned only to implant a tunneled dialysis catheter today and then reevaluate the patient after he has initiated dialysis and had some additional evaluations. The patient is extremely uncomfortable and extremely frail and intolerant of even Trendelenburg position and even intolerant of extending his neck. DESCRIPTION OF PROCEDURE: With the patient in supine position and most of the time in a reverse Trendelenburg with the neck in an intermediate position, the patient was prepped and draped in a sterile manner and the right internal jugular vein was localized with ultrasound. It was of normal caliber without filling defect or other abnormality. Local anesthetic was injected and a small incision was made at the base of the neck and through that incision with continuous ultrasound guidance, a needle and guidewire were inserted into the internal jugular vein and under fluoroscopy, the wire was advanced on the right atrium. Under fluoroscopy, dilators were passed and finally the peelaway dilator introducer. I chose a 19-cm HemoSplit catheter, made an entering incision below the clavicle, placed the catheter through a subcutaneous tunnel and then inserted it through the peelaway sheath as it was removed. The catheter came into appropriate positioning in the right atrium. Both lumens were aspirated and free return of blood was confirmed. They were then flushed with saline and then heparin lock, clamped and capped. The cervical incision was closed with an interrupted inverted 3-0 Vicryl and Dermabond glue. The entry incision was snugged up about the catheter with a single interrupted inverted subcuticular 3-0 Vicryl. Both incisions sites were then closed with Dermabond glue. The catheter was affixed to the adjacent skin with 2-0 silk and both sites were dressed with Maxorb Ag, Tegaderm and Cavilon skin prep. OPERATIVE REPORT [id number] LUL ROY The patient was then taken to the recovery room where we will obtain a chest x-ray. He will go back to his room after that and can resume his preop diet and medications and hopefully will be able to go ahead and initiate hemodialysis later today. TRANSINT:[id number] Voice Confirmation ID: [id number] DOCUMENT ID: [id number] JOMAR THOMPSON MD at 0749 CC: SEDA FERREIRA MD and CHRISTY ARELLANO MD [id number] DICTATION DATE: 11/25/16 1346 BRANDING MACHINE TENDER: 11/25/16 1620 ADM IN [facility] [address] [place] [address]
[2016-12-10 12:40] LABS: HEMATOCRIT 25.8 % (42.0-54.0); HEMOGLOBIN 8.6 g/dL (13.5-17.5)
--- NOTE | 2016-12-10 18:29 | NUR ---
HD WAS COMPLETED TODAY WITHOUT NOTED DISTRESS, PLEASE SEE HD FLOW SHEET FOR SPECIFICS
--- NOTE | 2016-12-10 23:30 | NUR ---
1929- REPORT RECVD. CARE ASSUMED. INITIAL ASSMNT COMPLETED. SEE FLOWSHEET FOR ALL FINDINGS. SEDATED ON MECH VENT. ETT PATENT AND SECURED. ORAL CARE PER VA LUNG SOUNDS COARSE THRU OUT, DIM IN BASES.SPO2 98%. SR ON THE MONITOR AT [facility] ITNV. LEVOPHED GTT TITRATION IN PLACE FOR HYPOTENSION. PULSES PALP, WEAK. SCDS IN USE. AFEBRILE. ABD SOFT,FLAT. BSA X4. PEG TUBE CDI. TF ON HOLD. ANURIC. RIGHT CHEST HEMASPLIT INTACT AND INFUSING IVF. TURNED AND REPOSITIONED. AIR OVERLAY IN USE FOR SKIN INTEGRITY AND COMFORT. RESTRAINTS PER PROTOCOL. HOB UP. CONT CURRENT POC. 2119- FAMILY AT BEDSIDE. UPDATE GIVEN. ORAL CARE PER VAP. TURNED AND REPOSITIONED. VSS. HOB UP. CONT CURRENT POC. 2319- REASSESSMENT COMPLETED. SEE FLOWSHEET FOR ALL FINDINGS. SEDATED ON MECH VENT. ETT PATENT AND SECURED. ORAL CARE PER VA LUNG SOUNDS COARSE THRU OUT, DIM IN BASES.SPO2 98%. SR ON THE MONITOR AT [facility] ITME. PULSES PALP, WEAK. SCDS IN USE. AFEBRILE. ABD SOFT,FLAT. BSA X4. PEG TUBE CDI. ANURIC. RIGHT CHEST HEMASPLIT [id number] TURNED AND REPOSITIONED. AIR OVERLAY IN USE FOR SKIN INTEGRITY CONT CURRENT POC.
[2016-12-11] VITALS (44 sets, daily range): BP systolic 84–159; BP diastolic 36–61
--- NOTE | 2016-12-11 01:20 | NUR ---
TURNED AND REPOSITIONED. ORAL CARE PER VAP. NO CHANGES. CONT POC.
--- NOTE | 2016-12-11 02:00 | NUR ---
CORDARONE GTT ON HOLD,..HR 58
--- NOTE | 2016-12-11 03:30 | NUR ---
REASSESSMENT COMPLETED. SEE FLOWSHEET FOR ALL FINDINGS. SEDATED ON MECH VENT. ETT PATENT AND SECURED. ORAL CARE PER VA LUNG SOUNDS COARSE THRU OUT, DIM IN BASES.SPO2 98%. SR ON THE MONITOR AT [facility] ITME. PULSES PALP, WEAK. SCDS IN USE. AFEBRILE. ABD SOFT,FLAT. BSA X4. PEG TUBE CDI. ANURIC. RIGHT CHEST HEMASPLIT INTACT AND INFUSING IVF. TURNED AND REPOSITIONED. AIR OVERLAY IN USE FOR SKIN INTEGRITY
--- NOTE | 2016-12-11 05:14 | NUR ---
BATH GIVEN. LARGE WATERY BM SEEN. LINENS CHANGED. VSS. LEVOPHED GTT WEANED DOWN. HOB UP. CONT CURRENT POC.
[2016-12-11 05:39] LABS: BASOPHILS 0.1 % (0.0-2.0); EOSINOPHILS 0.1 % (0-7); HEMATOCRIT 27.3 % (42.0-54.0); HEMOGLOBIN 9.6 g/dL (13.5-17.5); IMMATURE GRANULOCYTES 0.5 % (0-5); LYMPHOCYTES 1.5 % (15-50); MCHC 35.2 g/dL (31.0-37.0); MONOCYTES 1.6 % (2-11); NEUTROPHILS 96.2 % (40-80); RDW 17.8 % (11.5-14.5)
[2016-12-11 05:40] LABS: MCV 88.1 fL (80.0-100.0); PLATELET COUNT 38 10x3/uL (130-400); WBC 18.8 10x3/uL (4.8-10.8)
[2016-12-11 05:51] LABS: BILIRUBIN - DIRECT 0.1 mg/dL (0.00-0.30); BILIRUBIN - TOTAL 0.7 mg/dL (0.2-1.3); CREATININE - SERUM 3.2 mg/dL (0.6-1.3); MAGNESIUM - SERUM 2.4 mg/dL (1.8-2.4)
[2016-12-11 05:52] LABS: ANION GAP 20.4 mmol/L (8-16); CARBON DIOXIDE 20.3 mmol/L (21.0-32.0); PHOSPHOROUS 5.8 mg/dL (2.5-4.9); POTASSIUM - SERUM 4.7 mmol/L (3.5-5.1)
[2016-12-11 05:53] LABS: ALBUMIN 0.9 g/dL (3.4-5.0); CALCIUM 6.7 mg/dL (8.5-10.1); PROTEIN - SERUM 4.4 g/dL (6.4-8.2)
[2016-12-11 05:54] LABS: INR 1.4 (0.85-1.17)
--- NOTE | 2016-12-11 17:27 | NUR ---
Patient remains in ICU on ventilator. Not weanable at this time. Grave prognosis w/ multiple system organ failure septic shock. Thrombocytopenia related to ?? DIC. CM following to assist as is appropriate.
--- NOTE | 2016-12-11 19:00 | NUR ---
REPORT RECIEVED, INITIAL ASSESSMENT COMPLETE, PLEASE SEE FLOW SHEETS FOR DETAILS. ON VENT, NO RESPONSE, UPON INSPECTION PUPILS UNEVEN AND SLOW TO REACT, RIGHT 3MM AND LEFT 2MM, THOUGH ARE ACCOMIDATING. LUNG SOUNDS WITH SMALL AMOUNT OF CRACKLES IN LOWER LOBES BUT CLEAR OTHERWISE. RED BOTTOM NOTED. BOWEL SOUNDS VERY HYPOACTIVE X4 QUADRANTS. PEG TUBE IN PLACE, DRESSING INTACT, NEEDS CHANGES. PULES PALPABLE PERIPHERALLY. BRUISING NOTED ON BILATERAL ARMS WITH WEEPING EDEMA PRESENT. SKIN LOOSE AND WRINKLED. BP LOW MAP 58, RESTARTED LEVOPHED AT 3MCG/HR. ALL OTHER VSS AT THIS TIME, WILL CONTINUE TO MONITOR.
--- NOTE | 2016-12-11 20:46 | NUR ---
CHECKED RESIDUAL AND RECIEVED 330ML, PAGED DR SPIVEY, HE CALLED BACK AND SAID TO NOT RETURN RESIDUAL AND TO HOLD TUBE FEED. ORAL CARE AND TURNING PROVIDED. BED LOW AND LOCKED, VSS AT THIS TIME, WILL CONTINUE TO MONITOR.
--- NOTE | 2016-12-11 23:09 | NUR ---
REASSESSMENT COMPLETE, PLEASE SEE FLOW SHEETS FOR DETAILS. ORAL CARE AND TURNING PROVIDED. VSS AT THIS TIME, BED LOW AND LOCKED, WILL CONTINUE TO MONITOR.
[2016-12-12] VITALS (37 sets, daily range): BP systolic 88–166; BP diastolic 40–81
--- NOTE | 2016-12-12 01:00 | NUR ---
ORAL CARE AND TURNING PROVIDED. BED LOW AND LOCKED. VSS AT THIS TIME, WILL CONTINUE TO MONITOR.
--- NOTE | 2016-12-12 03:00 | NUR ---
REASSESSMENT COMPLATE, PLEASE SEE FLOW SHEETS FOR DETAILS. CHECKED RESIDUAL AND AT 85 WITH NO TUBE FEED, 15ML FROM MEDS EARLIER IN NIGHT, AND ALL RESIDUAL THROWN OUT FROM BEFORE. THIS 85ML IN RESIDUAL WAS RETURNED, WILL PASS ON INFO IN REPORT TO NOTIFY MD WHEN ROUNDING. BM CLEANED UP, MEDIUM AMOUNT, DARK AND STICKY CONSISTANCY. DARK RED AREAS ON SCROTUM NOTED, WELL ON BUTTOCKS. SCOTUM SLINGED. ORAL CARE AND TURNING PROVIDED. BED LOW AND LOCKED. PT RESPONDS TO PAINFUL STIMULI BUT DOES NOT OPEN EYES. VSS AT THIS TIME, WILL CONTINUE TO MONITOR.
[2016-12-12 03:49] LABS: BASOPHILS 0.2 % (0.0-2.0); EOSINOPHILS 0 % (0-7); HEMATOCRIT 29.8 % (42.0-54.0); HEMOGLOBIN 10.5 g/dL (13.5-17.5); IMMATURE GRANULOCYTES 0.8 % (0-5); LYMPHOCYTES 0.8 % (15-50); MCH 30.3 pg (26.0-34.0); MCHC 35.2 g/dL (31.0-37.0); MCV 86.1 fL (80.0-100.0); MONOCYTES 0.8 % (2-11); NEUTROPHILS 97.4 % (40-80); RBC 3.46 10x6/uL (4.20-6.10); RDW 18.2 % (11.5-14.5); WBC 27.8 10x3/uL (4.8-10.8)
[2016-12-12 03:50] LABS: PLATELET COUNT 46 10x3/uL (130-400)
[2016-12-12 03:51] LABS: APTT 35.7 SECONDS (22.8-39.4); PROTIME 14.2 SECONDS (11.6-15.0)
[2016-12-12 03:52] LABS: INR 1.11 (0.85-1.17)
[2016-12-12 03:53] LABS: ALBUMIN 0.9 g/dL (3.4-5.0); ANION GAP 20.1 mmol/L (8-16); BILIRUBIN - TOTAL 0.6 mg/dL (0.2-1.3); CARBON DIOXIDE 21.4 mmol/L (21.0-32.0); CREATININE - SERUM 3.5 mg/dL (0.6-1.3); MAGNESIUM - SERUM 2.3 mg/dL (1.8-2.4); PHOSPHOROUS 5.9 mg/dL (2.5-4.9); POTASSIUM - SERUM 4.5 mmol/L (3.5-5.1); PROTEIN - SERUM 3.9 g/dL (6.4-8.2)
[2016-12-12 03:59] LABS: CALCIUM 6.9 mg/dL (8.5-10.1)
[2016-12-12 04:21] LABS: D-DIMER-QUANTITATIVE 5.5 ug/mLFEU (0.20-0.54)
--- NOTE | 2016-12-12 05:00 | NUR ---
ORAL CARE AND TURNING PROVIDED, VSS AT THIS TIME, WILL CONTINUE TO MONITOR.
--- NOTE | 2016-12-12 07:00 | NUR ---
SCD'S OFF ON ENTRY TO ROOM
--- NOTE | 2016-12-12 07:30 | NUR ---
ASSESSMENT COMPLETE. PT SEDATED ON VENT. AROUSES TO PAIN, DOES NOT OPEN EYES. TURNED OFF SEDATION FOR NOW TO ASSESS NEURO FUNCTION. GRIMACES TO PAINFUL STIMULI. RT PUPIL 4MM SLUGGISH, LT PUPIL 3MM SLUGGISH. ON VENT, SEE FLOWSHEET FOR DETAILS. INLINE AND ORALLY SUCITONED, MINIMAL SECRETIONS. RUL, RML CLEAR. RLL, LLL DIMINIHSED. SYLVIA CRACKLES. S1S2 NOTED, RADIAL AND PEDAL PULSES PALP. NSR HR 65. HYPOACTIVE BOWEL SOUNDS X4. PLACEMENT CHECKED VIA AUSCULATION. RESIDUAL 140 GREEN BILE. NO BM AT THIS TIME. SEE FLOWSHEET FOR SKIN ASSESSMENT. WEEPING UPPER EXTREMETY EDEMA, CHUCKS PADS APPLIED UNDERNEATH ARMS BILAT. RT ARM WRAP REMOVED, SKIN TEARS X2, HEALING/NO LONGER OPEN. GENERALIZED WEAKNESS. FOR OTHER ASSESSMENT FINDINGS SEE FLOWSHEET. RT AC PIV SEE FLOWSHEET. WILL CONTINUE TO MONITOR.
--- NOTE | 2016-12-12 08:50 | NUR ---
TURNED ON SEDATION AT 10MG/HR
--- NOTE | 2016-12-12 09:10 | NUR ---
FAMILY AT BEDSIDE. UPDATE PROVIDED.
--- NOTE | 2016-12-12 09:34 | NUR ---
NUTRITION MONITORING & EVAL CHART REVIEWED. NURSING REPORTS NEPRO RESUMED AT 10 CC/HR. STATES WILL MONITOR AND ADVANCE TOLERATED. RD FOLLOWING
--- NOTE | 2016-12-12 09:55 | NUR ---
NOTIFIED DR. VANN OF PATIENT'S HTN AND UNEQUAL PUPIL SIZE WITH SLUGGISH REACTION
--- NOTE | 2016-12-12 10:29 | NUR ---
PATIENT'S WBC INCREASED FROM 19 TO 28 IN [address] VANN OF INCREASE
--- NOTE | 2016-12-12 11:15 | NUR ---
ASSESSMENT COMPLETE SEE FLOWSHEET FOR DETAILS.
--- NOTE | 2016-12-12 13:01 | NUR ---
DR. VANN SPOKE WITH PATIENT'S , DAUGHTER, AND GRANDDAUGHTER ABOUT EXTUBATION AND POOR PROGNOSIS. FAMILY IS GOING HOME FOR THE DAY TO TALK ABOUT OPTIONS.
--- NOTE | 2016-12-12 13:05 | NUR ---
DR. PEÑA AT BEDSIDE.
--- NOTE | 2016-12-12 15:00 | NUR ---
FAMILY AT BEDSIDE. REPORTS UNCERTAINTY ABOUT PLANS FOR PATIENT. ENCOURAGED THEM TO GO HOME AND TALK ABOUT IT MORE
--- NOTE | 2016-12-12 15:30 | NUR ---
REASSESSMENT COMPLETE. SEE FLOWSHEET FOR DETAILS.
--- NOTE | 2016-12-12 17:30 | NUR ---
PATIENT HAD MODERATE SIZED BM DIARRHEA. CONTINUES TO WEAP IN UPPER EXTREMETIES.
--- NOTE | 2016-12-12 19:45 | NUR ---
LINE MAINTENANCE SUPERVISOR PER FLOWSHEET. PT ON MECH VENT VIA OETT - DIPRIVAN GTT OFF FOR NEURO CHECK. PT VERY THIN, AIR OVERLAY IN USE - SEE SKIN ASSESSMENT. B/L SOFT WRIST RESTRAINTS ON PER MD ORDER. DIPRIVAN RESUMED AT 20MCG/KG/MIN WHEN PT RR UP TO 25 AND THRASHING HEAD. ALARMS ON.
--- NOTE | 2016-12-12 21:06 | NUR ---
PT INCONT OF DARK BROWN LOOSE STOOL. JARET-CARE DONE. CALMOSEPTINE TO SCROTUM AND TURNED OFF BACK WITH PILLOWS.
--- NOTE | 2016-12-12 23:31 | NUR ---
REASSESSMENT PER FLOWSHEET, NO ACUTE CHANGES. MULTIPLE ATTEMPT TO SITE A 2ND PIV UNSUCCESSFUL. G-TUBE WITH GREEN DRAINAGE - DSG CHANGED. ORAL CARE DONE. HEELS BRIDGED.
[2016-12-13] VITALS (37 sets, daily range): BP systolic 80–147; BP diastolic 39–88
--- NOTE | 2016-12-13 01:00 | NUR ---
REPOSITIONED UP IN BED TO L SIDE. ORAL CARE DONE. NO SIGN OF DISTRESS.
--- NOTE | 2016-12-13 03:39 | NUR ---
PCXR DONE. EUSEBIO MONTEMAYOR.
--- NOTE | 2016-12-13 07:00 | NUR ---
AM LAB DRAWN VIA HEMOSPLIT - OK'D BY DR. ALEX.
[2016-12-13 07:18] LABS: BASOPHILS 0.2 % (0.0-2.0); EOSINOPHILS 0 % (0-7); HEMATOCRIT 28.3 % (42.0-54.0); HEMOGLOBIN 9.9 g/dL (13.5-17.5); IMMATURE GRANULOCYTES 0.8 % (0-5); LYMPHOCYTES 1.4 % (15-50); MCH 29.7 pg (26.0-34.0); MONOCYTES 1.1 % (2-11); NEUTROPHILS 96.5 % (40-80); PLATELET COUNT 52 10x3/uL (130-400); RBC 3.33 10x6/uL (4.20-6.10); RDW 18.6 % (11.5-14.5); WBC 23.2 10x3/uL (4.8-10.8)
[2016-12-13 07:29] LABS: ANION GAP 18.3 mmol/L (8-16); BILIRUBIN - TOTAL 0.6 mg/dL (0.2-1.3); CALCIUM 7.1 mg/dL (8.5-10.1); CARBON DIOXIDE 22.2 mmol/L (21.0-32.0); POTASSIUM - SERUM 4.5 mmol/L (3.5-5.1); PROTEIN - SERUM 4.5 g/dL (6.4-8.2)
--- NOTE | 2016-12-13 08:46 | NUR ---
PT INC OF STOOL, CLEANED AND LINENS CHANGED.
[2016-12-13 09:18] LABS: FUNGUS STAIN RESULT 1 Yeast observed (())
--- NOTE | 2016-12-13 09:45 | NUR ---
NUTRITION MONITORING & EVAL CHART REVIEWED. PT REMAINS SEDATED ON VENT. NURSING TO RESUME NEPRO TUBE FEEDS @ 10 CC/HR. RD FOLLOWING
--- NOTE | 2016-12-13 10:12 | NUR ---
PATIENT PATHWAYS - PRL is keeping OPHD clinic up to date regarding patient's condition and anticipated discharge disposition. BMM PRL
--- NOTE | 2016-12-13 11:07 | NUR ---
1100-DR SOO BAY, CONSULT FOR SURGERY. HD NURSE HERE.
--- NOTE | 2016-12-13 14:02 | NUR ---
1400- HD CONTINUES TO BE IN PROGRESS, PT ALENA WELL. NO PULL BEING DONE. RED LUMIN HEMOSPLIT FLUSHES BUT CAN NOT DRAW BLOOD FROM IT.
--- NOTE | 2016-12-13 16:29 | NUR ---
1628-CALLED AND REC'D NO ANSWER. CALLED DAUGHTER AND DISCUSSED SURGEON CONSULT FOR TRACG. DAUGHTER RIVERA STATES THAT THEY ARE WAITING ON OTHER FAMILY TO DRIVE IN AND TOMORROW TERMINAL EXTUBATION IS PLANNED.
--- NOTE | 2016-12-13 18:54 | NUR ---
MAP-49, SPB - 74. LEVOPHED STARTED.
--- NOTE | 2016-12-13 19:00 | NUR ---
BS REPORT REC'D. ORDERS REVIEWED. PT ON MECH VENT, NO SIGNS OF DISTRESS.
--- NOTE | 2016-12-13 19:45 | NUR ---
STAKING ENGINEER PER FLOWSHEET. DIPRIVAN GTT OFF FOR NEURO ASSESS. CM - CAF. LUNGS CTA, DIMINISHED B/L BASES. IVF INFUSING TO R UPPER ARM PIV, NO SWELLING NOTED - SEE FLOWSHEET. UPPER ABD PEG CLAMPED D/T HIGH RESIDUALS. 3-4+ SCROTAL EDEMA WITH ESCORIATION NOTED - ELEVATED AND CALMOSEPTINE COVERED. 1-2+ WEEPING EDEMA B/L ARMS. COCCYX WITH STAGE 2 ULCER NOTED, NO DRAINAGE. WILL CONT SEDATION VACATION, AFTER 20MIN - ONLY OPENS EYES, NO MOVEMENT OF EXTR. ALARMS ON.
--- NOTE | 2016-12-13 21:00 | NUR ---
NO VISITORS. PT RR 25, TURNING HEAD SIDE TO SIDE, BUT NOT REACHING OR PULLING. B/L SOFT WRIST RESTRAINTS D/C'D. DIPRIVAN GTT RESTARTED AT 25MCG/KG/MIN. WILL CONT CLOSE MONITORING.
--- NOTE | 2016-12-13 22:29 | NUR ---
CM - SR WITH 1ST DEGREE AVB. WEANING LEVOPHED.
--- NOTE | 2016-12-13 23:30 | NUR ---
REASSESSMENT PER FLOWSHEET, NO ACUTE CHANGES. LEVOPHED GTT OFF, MAP > 60. NO SIGN OF DISTRESS.
[2016-12-14] VITALS (26 sets, daily range): BP systolic 68–143; BP diastolic 36–79
--- NOTE | 2016-12-14 01:18 | NUR ---
REPOSITIONED UP IN BED TO L SIDE. ORAL CARE DONE.
--- NOTE | 2016-12-14 03:01 | NUR ---
REASSESSMENT PER FLOWSHEET, GASTRIC RESIDUAL 240ML, TF STOPPED AND G-TUBE FLUSHED. GTUBE DSG CHANGED. NO OTHER CHANGES. ABGS WNL.
--- NOTE | 2016-12-14 05:02 | NUR ---
CM- AFLUTTER NOTED.
[2016-12-14 05:32] LABS: ANION GAP 17.4 mmol/L (8-16); BILIRUBIN - TOTAL 0.67 mg/dL (0.2-1.3); CARBON DIOXIDE 24.6 mmol/L (21.0-32.0); PROTEIN - SERUM 4.4 g/dL (6.4-8.2)
[2016-12-14 05:42] LABS: BASOPHILS 0.1 % (0.0-2.0); EOSINOPHILS 0 % (0-7); HEMATOCRIT 29.6 % (42.0-54.0); HEMOGLOBIN 10.3 g/dL (13.5-17.5); IMMATURE GRANULOCYTES 0.8 % (0-5); MCH 30.2 pg (26.0-34.0); MCHC 34.8 g/dL (31.0-37.0); MCV 86.8 fL (80.0-100.0); MONOCYTES 0.9 % (2-11); NEUTROPHILS 97.2 % (40-80); PLATELET COUNT 45 10x3/uL (130-400); RBC 3.41 10x6/uL (4.20-6.10); RDW 19.4 % (11.5-14.5); WBC 20.1 10x3/uL (4.8-10.8)
[2016-12-14 05:43] LABS: CREATININE - SERUM 2.9 mg/dL (0.6-1.3)
--- NOTE | 2016-12-14 06:00 | NUR ---
NO VISITORS. CM - RHYTHM CHANGES IN AND OUT OF AFLUTTER. B/P STABLE.
--- NOTE | 2016-12-14 07:30 | NUR ---
SHIFT ASSESSMENT VIA FLOWSHEET, SEE FOR DETAILS.
--- NOTE | 2016-12-14 10:25 | NUR ---
DR VANN HERE TO SEE PT, PLAN OF CARE DISCUSSED.
--- NOTE | 2016-12-14 11:30 | NUR ---
REASSESSMENT VIA FLOWSHEET, SEE FOR DETAILS.
--- NOTE | 2016-12-14 12:15 | NUR ---
FAMILY AT BEDSIDE, UPDATED BY DR VANN. WISHES TO MOVE FORWARD WITH TERMINAL EXTUBATION AFTER ARRIVAL OF DAUGHTER FROM OUT OF STATE.
--- NOTE | 2016-12-14 15:30 | NUR ---
SHIFT ASSESSMENT VIA FLOWSHEET, SEE FOR DETAILS.
--- NOTE | 2016-12-14 18:09 | NUR ---
FAMILY AT BEDSIDE FOR VISITATION.
--- NOTE | 2016-12-14 19:00 | NUR ---
ASSESSMENT COMPLETE. S1S2. PT SEDATED ON VENT. RR CRACKLES BILATERALLY IN UPPER LOBES; DIMINISHED BILATERALLY IN LOWER LOBES. GENERALIZED BRUISING AND SCAB/SORES ALL OVER BODY. WEEPING EDEMA NOTED TO EXTREMITES. RADIAL PULSES +2; PEDAL PULSES +1. SKIN TEAR NOTED ON RIGHT CHEEK. PIV TO LEFT FOREARM; HEMOSPLIT NOTED TO RIGHT JUGULAR; PATENT. SCD IN PLACE. ANURIC.
--- NOTE | 2016-12-14 19:30 | NUR ---
SPOKE WITH FAMILY ABOUT PT AND STATUS OF TERMINAL EXTUBATION. FAMILY STATED THEY ARE READY.
--- NOTE | 2016-12-14 20:07 | NUR ---
DR. GANDHI NOTIFIED OF STATUS OF TERMINAL EXTUBATION.
--- NOTE | 2016-12-14 20:16 | NUR ---
ORDERS D/C'D MINUS COMFORT CARE MEDICATIONS.
--- NOTE | 2016-12-14 20:26 | NUR ---
SPOKE WITH BRIAN FROM [facility]. PT DOES NOT MET CRITERIA.
--- NOTE | 2016-12-14 20:30 | NUR ---
MORPHINE 10MG GIVEN. FAMILY AND RESP. THERAPY NOTIFIED.
--- NOTE | 2016-12-14 20:47 | NUR ---
STOPPED ALL FLUIDS. D/C'D PIV TO RIGHT FOREARM. CATH INTACT. DRESSING APPLIED. PT CLEANED; ROOM CLEANED.
--- NOTE | 2016-12-14 21:02 | NUR ---
FAMILY AT BEDSIDE.
--- NOTE | 2016-12-14 22:06 | NUR ---
PRN 4MG MORPHINE GIVEN AT 2111 AND 2205 FOR DYSPNEA. SEE EMAR FOR DETAILS.
--- NOTE | 2016-12-14 23:15 | NUR ---
REASSESSMENT COMPLETE. HR IRREGULAR; DISTANT. RR SHALLOW; DYSPNEA; CRACKLES/DIMINISHED BILATERALLY IN UPPER LOBES; DIMINSHED BILATERALLY IN LOWER LOBES. MOTTLED/BLUISH DISCOLORATION OF TOES/ANKLES. EMBEDDED SYSTEMS SOFTWARE ENGINEER > 3SEC. BLUEISH DISCOLORATION TO HANDS/FOREARM. BLUE DISCOLORATION TO STROTUM AND PERIAREA. MOUTH DRY. ORAL CARE PROVIDED. PT MOUTH BREATHING.
--- NOTE | 2016-12-14 23:49 | NUR ---
PT GIVEN PRN MORPHINE PER ORDERS. SEE EMAR FOR DETAILS. PT FAMILY STATED THEY FELT THOUGH HE WAS IN PAIN AND REQUESTED TO RECEIVE MORPHINE Q15MIN FOR COMFORT.
[2016-12-15] VITALS: BP 84/32
--- NOTE | 2016-12-15 00:22 | NUR ---
PT ABD BREATHING. DRY MUCOUS MEMBRANES. ORAL CARE PROVIDED. FAMILY AT BEDSIDE.
--- NOTE | 2016-12-15 00:47 | NUR ---
PT FAMILY REQUESTED MORPHINE BE GIVEN; STATED PT LOOKED UNCOMFORTABLE AND IN PAIN
[2016-12-15 01:00] VITALS: BP 72/25
[2016-12-15 02:00] VITALS: BP 70/20
--- NOTE | 2016-12-15 02:25 | NUR ---
CREDENTIALING SPECIALIST SET UP. 4MG LOADING DOSE GIVEN. BP 70/20. HR 50. WILL CONTINUE TO MONITOR.
[2016-12-15 03:00] VITALS: BP 69/24
--- NOTE | 2016-12-15 03:00 | NUR ---
REASSESSMENT COMPLETE. LUNG SOUNDS SHALLOW; BRADYPNEA. RR DIMINISHED BILATERALLY IN ALL LOBES. PT UNABLE TO TAKE A DEEP BREATH IN. PT UNRESONSIVE. GCS 3. REDNESS IN LEFT EYE NOTED. FAMILY AT BEDSIDE. WILL CONTINUE TO MONITOR.
[2016-12-15 04:00] VITALS: BP 61/25
--- NOTE | 2016-12-15 04:37 | NUR ---
PRONOUNCED . DR. BOLAÑOS AT BEDSIDE. CAUSE OF CARDIOPULMONARY ARREST.
--- NOTE | 2016-12-15 04:40 | NUR ---
SPOKE WITH FRANCISCA. RECEIVED OKAY FOR RELEASE.
--- NOTE | 2016-12-15 04:48 | NUR ---
SPOKE WITH [facility] .
--- NOTE | 2016-12-16 14:06 | NUR ---
Per CMS protocol, restraint report logged into data base.
[2016-12-19 17:10] LABS: FUNGUS CULTURE RESULT 1 Candida albicans (())
[2017-01-04 09:17] LABS: FUNGUS MYCOLOGY CULTURE Final report (())
--- NOTE | 2017-01-04 10:18 | OP ---
PATIENT NAME: LUL YOON MEDICAL RECORD: [id number] :35 LOCATION:.[facility] D.2314 ADMISSION DATE:11/24/16 SURGEON: TAM ANDREWS MD DATE OF OPERATION: 12/02/2016 PREOPERATIVE DIAGNOSES: 1. Severe protein calorie malnutrition. 2. Dysphagia. 3. 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 4. Cachexia. 5. Dysphagia. 6. History of radiation to the head, neck due to head and neck cancer which causes dysphagia. 7. Cachexia. POSTOPERATIVE DIAGNOSES: 1. Severe protein calorie malnutrition. 2. Dysphagia. 3. 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 4. Cachexia. 5. Dysphagia. 6. History of radiation to the head, neck due to head and neck cancer which causes dysphagia. 7. Cachexia. 8. Large hiatal hernia, still grade IV. 9. Friability in the cervical esophagus likely due to the patient's radiation in the past. 10. 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 11. Duodenal polyp. PROCEDURE: 1. Esophagogastroduodenoscopy with antral and distal esophageal biopsies. 2. Hot biopsy forceps, duodenal polypectomy times 1. 3. Percutaneous endoscopic gastrostomy tube placement, 20 Slovenian. SURGEON: Tam Andrews MD SURGICAL RESIDENT: None. BLOOD LOSS: Minimal. ANESTHESIA: Local with IV sedation. COMPLICATIONS: None. The reason for the anesthesia staff being present during the procedure includes the probable need for airway manipulation. ENDOSCOPIC COURSE: The patient was conveyed to the endoscopy suite electively on 12/02/2016. IV sedation was induced by the anesthesia staff. A bite block was inserted. A gastroscope was inserted into the mouth. It was advanced easily into the hypopharynx. The esophagus was easily intubated as were the stomach and duodenum. Upon withdrawal, retroflexed and angulus views were obtained. I then readvanced into the duodenum. At the junction of the second and third portions of the duodenum, there was a 9 x 8 mm sessile polyp which OPERATIVE REPORT [id number] LUL YOON appeared to be adenomatous in origin. This was grasped and was removed in its entirety utilizing hot biopsy forceps, polypectomy technique. I withdrew into the stomach. Cold endoscopic biopsies of the antrum were performed. I cleansed the anterior abdominal wall skin. I then indented the anterior abdominal wall skin and was able to transilluminate as well. I chose an area for insertion of the G-tube in the epigastrium. This area was infiltrated with a local anesthetic. A skin incision was accomplished. Through the skin incision, an Angiocath was advanced. I was able to access the stomach through the abdominal wall on the first try with the Angiocath. A guidewire advanced easily. It was grasped with an endoscopic snare. The wire was withdrawn out through the mouth. The wire was attached to a gastrostomy tube which was pull-type gastrostomy tube. This was then pulled into place. I re-endoscoped the patient's esophagus and stomach. There had been no evidence of false passage or perforation. Cold endoscopic biopsies were obtained in 4 quadrants at the level of the EG junction. 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 Upon withdrawal, I noticed some friability of the cervical esophagus likely due to the patient's history of radiation in the past. The endoscope was withdrawn under direct vision. Hub and flange devices were attached. An abdominal binder was applied as well. We can begin using the gastrostomy tube tomorrow for tube feedings. TRANSINT:[id number] Voice Confirmation ID: [id number] DOCUMENT ID: [id number] TAM ANDREWS MD at 1018 CC: [id number] DICTATION DATE: 12/02/16 110 ERGONOMIC SPECIALIST: [id number]/02/[id number] DIS IN 12/15/16 [facility] [address] [id number]
--- NOTE | 2017-01-04 10:18 | CN ---
PATIENT NAME:LUL YOON MEDICAL RECORD: [id number] : 35 LOCATION:[id number] ADMIT DATE: 11/24/16 ACCOUNT: [id number] CONSULTING PHYSICIAN: LOVE ANDREWS MD REFERRING PHYSICIAN: SEDA MALDONADO MD DATE OF CONSULTATION: 11/30/2016 CHIEF COMPLAINT: "I cannot swallow." HISTORY OF PRESENT ILLNESS: The patient has had a history of head and neck cancer and has undergone radiation for this. It is very difficult for him to swallow. The patient appears cachectic. I am going to plan for placement of a PEG tube. This will be done on Monday. The risks, possible complications and alternatives to procedure were explained to the patient. He elects to proceed. He has lost a considerable amount of weight over the past year. The patient has end-stage renal disease and is on hemodialysis. He is being dialyzed through a tunneled catheter. They are saving his left upper extremity for arteriovenous access in the future. Symptoms are difficult to characterize. He is currently not in any pain. REVIEW OF SYSTEMS: As described above, otherwise negative. Positive for weight loss, positive for fatigue. This is a consultation note addendum. For the typed portion of the consult note including the past medical and surgical history, allergies, social history and current medications, please see the typed portion in the chart. PHYSICAL EXAMINATION: GENERAL: The patient appears acutely ill. He also appears chronically ill. VITAL SIGNS: Reviewed. HEAD: External ears appear normal. There is wasting of the temporalis muscles and masseter muscles. EYES: Extraocular movements are intact. NECK: Trachea is midline. CHEST: There are intercostal retractions. PULMONARY: Nonlabored, no stridor. ABDOMEN: Scaphoid. EXTREMITIES: Wasted and very thin. The hypothenar wasting. INTEGUMENT: No extremity pallor. PSYCHIATRIC: Normal affect. NEUROLOGIC: Nonfocal, no lethargy. The patient answers questions appropriately, moves all extremities well. BACK: Thoracic kyphosis is present. LYMPHATICS: No lymphangitic streaking of the exposed extremities. IMPRESSION: 1. Dysphagia. 2. Weight loss. 3. Cachexia. 4. Protein-calorie malnutrition. PLAN: Will be EGD and placement of a PEG tube. TRANSINT:[id number] Voice Confirmation ID: [id number] DOCUMENT ID: [id number] CONSULT REPORT [id number] LUL YOON ROBERT MD at 1018 CC: SEDA MALDONADO MD [id number] DICTATION DATE: 11/30/161732 SIDING STAPLER: 11/30/162149 DIS IN 12/15/16 [place] [id number] [place] [id number]
--- NOTE | 2017-01-19 07:19 | DS ---
PATIENT:LUL YOON :35 MEDICAL RECORD: [id number] DISCHARGE SUMMARY ADMISSION DATE: 11/24/16 DISCHARGE DATE: 12/15/16 DISCHARGE SUMMARY ADMISSION DATE: 11/24/2016 DISCHARGE DATE/DATE OF : 12/14/2016 CONSULTATIONS: Dr. Tam Hoyos with general surgery, Dr. Juan Morris with pulmonology, Dr. Laureano Sesay with rheumatology, Dr. Omar Elliott with pulmonology and Dr. Federica Davis with infectious disease, Dr. Terri Shah with hem/onc. TESTS AND PROCEDURES AND SIGNIFICANT PROCEDURES: 1. On 11/28/2016, venous Doppler study, no evidence of DVT in either bilateral lower extremities. 2. On 11/28/2016, chest CT; small left pleural effusion, scattered tree-in-bud opacities right lower lobe suggesting infection, 1 cm nodule left lung apex, trace pericardial effusion. 3. On 12/11/2016, venous Doppler; no evidence of DVT in bilateral lower extremities. HOSPITAL COURSE: The patient is an 81-year-old male who was recently seen by Dr. Arellano in the [facility] for CKD with worsening renal function. He was admitted with ESRD, failure to thrive, and unintentional weight loss over the past 6 months. Upon admit, his creatinine was 8. Dr. Chris was consulted for dialysis catheter placement. On 11/25/2016, Dr. Chris placed a HemoSplit catheter under local anesthesia. He received several hemodialysis treatments without any complications. The patient had a chronic cough with abnormal chest x-ray and Dr. Morris with pulmonology was consulted and he ordered nebulizer treatments, CT of the chest and lab workup. He was ANCA positive, myeloperoxidase was elevated at 613. 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 He was also treated for pneumonia by pulmonology. CT of the chest shows scattered tree-in-bud opacities suggesting infection. 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 They recommended n.p.o. and placement of the PEG tube. Dr. Sesay with rheumatology was consulted due to positive ANCA. Due to recurrent pneumonia and poor functional state, he decided the patient was a poor candidate for immunosuppression. Dr. Hoyos with general surgery was consulted for PEG placement. A feeding tube was placed and he was started on tube feeds. The family had discussed hospice and DNR status with Dr. Huitron multiple times, but had not decided on either, at that time discharge planning had started for rehabilitation center in [place]. Dr. Davis with infectious disease was consulted for pneumonia and sepsis. She helped manage the IV antibiotics, Zosyn, Levaquin, and vancomycin. The patient was supposed to discharge to rehab on December 06, but became hypotensive over the night and he became critically ill, was transferred to the ICU and intubated. He was started on pressors for hypotension. He also developed an ileus and his tube feeds were discontinued. The family then changed him to med code only. No compressions. He continued to receive hemodialysis to remove fluid. Dr. Shah with hem/onc was consulted for thrombocytopenia, he thought probably related to sepsis. 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 The patient DISCHARGE SUMMARY REPORT [id number] LUL YOON remained on the ventilator for 1 week with a poor prognosis. The family decided to change him to comfort care only and to not place a trach. He remained on pressor support for hypotension. The patient became unresponsive on 12/15/[address] Heller pronounced him at 4:30 a.m. on 12/15/2016 due to cardiac arrest. TRANSINT:[id number] Voice Confirmation ID: [id number] DOCUMENT ID: [id number] Dictated By: WENDY HADLEY I have interviewed/examined the above patient and agree with these documented findings. SHONDA ALEX MD at 0719 at 1655 CC: [id number] DICTATION DATE: 01/13/17 1340 MELT ROOM OPERATOR: 01/14/17 0226 DIS IN 12/15/16 [place] [id number] [place] [id number]
[2017-01-26 12:17] LABS: ACID FAST CULTURE Negative (()); ACID FAST SMEAR Negative (())
== END 2016-12-15 04:37 | DRG 682 ==
LOC: D.M2 16:14 → D.ICU 16:14
PROVIDERS: Internal Medicine Nephrology; Internal Medicine Pulmonary Disease; Internal Medicine Rheumatology; Student in an Organized Health Care Education/Training Program; Surgery; ADMIT Internal Medicine
PROC: B5131ZA Fluoroscopy of Right Jugular Veins using Low Osmolar Contrast, Guidance (ICD-10-PCS; 2016-11-25)
PROC: 05HM33Z Insertion of Infusion Device into Right Internal Jugular Vein, Percutaneous Approach (ICD-10-PCS; principal; 2016-11-25 11:45)
PROC: 0BH17EZ Insertion of Endotracheal Airway into Trachea, Via Natural or Artificial Opening (ICD-10-PCS; 2016-12-04)
PROC: 5A1955Z Respiratory Ventilation, Greater than 96 Consecutive Hours (ICD-10-PCS; 2016-12-04)
DX: I12.0 Hypertensive chronic kidney disease with stage 5 chronic kidney disease or end stage renal disease (principal); N18.6 End stage renal disease; J69.0 Pneumonitis due to inhalation of food and vomit; J96.22 Acute and chronic respiratory failure with hypercapnia; J96.21 Acute and chronic respiratory failure with hypoxia; A41.9 Sepsis, unspecified organism; D65 Disseminated intravascular coagulation [defibrination syndrome]; Z68.1 Body mass index [BMI] 19.9 or less, adult; K56.7 Ileus, unspecified; M31.30 Wegener's granulomatosis without renal involvement; N25.0 Renal osteodystrophy; R62.7 Adult failure to thrive; J44.9 Chronic obstructive pulmonary disease, unspecified; D63.1 Anemia in chronic kidney disease; E03.9 Hypothyroidism, unspecified; R63.4 Abnormal weight loss; I77.6 Arteritis, unspecified; Z78.1 Physical restraint status; I48.91 Unspecified atrial fibrillation